=== PATIENT | female | born 1970 ===

== ENCOUNTER 2017-07-06 04:57 | Inpatient (IN) | payer MEDICARE, OTHER ==
[2017-07-06 05:07] VITALS: BMI 37.2
[2017-07-06] MEDS ORDERED: HYDROmorphone 0.5 mg/0.5 ml ISec IVP STA (05:28)
[2017-07-06] MEDS ORDERED: Sodium Chloride 0.9% 1,000 ML IV STA (05:29)
[2017-07-06] MEDS ORDERED: HYDROmorphone 0.5 mg/0.5 ml ISec ONE (05:33)
--- NOTE | 2017-07-06 05:33 | ED PDOC ---
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 Associated nausea/vomiting. Denies fever, chest pain, shortness of breath, palpitations, changes in bowel movements, urinary symptoms. Past Medical History Reviewed: Historical Data, Nursing Documentation, Vital Signs Vital Signs: Last Vital Signs Temp 98.6 F 07/06/17 05:07 Pulse 60 07/06/17 05:07 Resp 19 07/06/17 05:07 BP 142/71 07/06/17 05:07 Pulse Ox 98 07/06/17 05:39 - Medical History PMH: Anxiety, Asthma, Back Problems, Depression, Gastritis, Gastrointestinal Ulcer Denies: Chronic Kidney Disease - Surgical History Surgical History: Pacemaker (lower back for pain management) Other surgeries: right groin lymph node resection - Family History Family History: States: Unknown Family Hx - Home Medications Home Medications: Ambulatory Orders Medication Instructions Recorded DULoxetine [Cymbalta] 30 mg PO DAILY 05/09/15 Divalproex [Depakote ER] 750 mg PO BID 07/06/17 Omeprazole Magnesium [Prilosec Otc] 40 mg PO DAILY 07/06/17 Oxycodone HCl [Oxycontin] 10 mg PO Q6 PRN 07/06/17 - Allergies Allergies/Adverse Reactions: Allergies Allergy/AdvReac Type Severity Reaction Status Date / Time shrimp Allergy RASH Verified 07/06/17 05:06 seafood Allergy RASH Uncoded 07/06/17 05:06 Review of Systems ROS Statement: Except As Marked, All Systems Reviewed And Found Negative Gastrointestinal: Positive for: Nausea, Vomiting, Abdominal Pain Physical Exam - Reviewed Nursing Documentation Reviewed: Yes Vital Signs Reviewed: Yes - Physical Exam Appears: Positive for: Well, Non-toxic, Uncomfortable (moaning) Head Exam: Positive for: ATRAUMATIC, NORMAL INSPECTION, NORMOCEPHALIC Skin: Positive for: Normal Color Eye Exam: Positive for: Normal appearance ENT: Positive for: Normal ENT Inspection Cardiovascular/Chest: Positive for: Regular Rate, Rhythm Respiratory: Positive for: Normal Breath Sounds Gastrointestinal/Abdominal: Positive for: Bowel Sounds, Soft, Tenderness ( diffuse upper abdominal discomfort) Back: Positive for: Normal Inspection Extremity: Positive for: Normal ROM Neurologic/Psych: Positive for: Alert, Oriented - ECG ECG: Positive for: Viewed By Me (reviewed by ED attending) ECG Rhythm: Positive for: Sinus Bradycardia (57bpm,) O2 Sat by Pulse Oximetry: 98 - Progress ED Course And Treament: labs, urine, IV fluids, IV pepcid, IV zofran, IV dilaudid Patient looked up in [facility]; receives 120 tablets of Oxycodone 10mg monthly, last rx 07/04/17 Disposition - Clinical Impression Clinical Impression: Abdominal pain - Patient ED Disposition Is Patient to be Admitted: No - Disposition Disposition: Transfer of Care Disposition Time: 06:00 Condition: STABLE Patient Signed Over To: Shey Gomez Handoff Comments: pending labs, u/s, re-eval
--- NOTE | 2017-07-06 05:51 | ED PDOC ---
- Laboratory Results Result Diagrams: 07/06/17 05:40 07/07/17 05:30 - ECG O2 Sat by Pulse Oximetry: 98 Medical Decision Making Medical Decision Makin:00 Patient signed out to me by Lisa Suarez PA-C pending imaging and workup. 7:[address] Marcial pending imaging and workup. Scribe Attestation: Documented by Kim Hidalgo, acting as a scribe for Shey Gomez MD. Provider Scribe Attestation: All medical record entries made by the Scribe were at my direction and personally dictated by me. I have reviewed the chart and agree that the record accurately reflects my personal performance of the history, physical exam, medical decision making, and the department course for this patient. I have also personally directed, reviewed, and agree with the discharge instructions and disposition. Disposition - Clinical Impression Clinical Impression: Acute cholecystitis - POA Present On Arrival: None - Disposition Disposition: Transfer of Care Disposition Time: 07:00 Condition: STABLE Patient Signed Over To: Ekta Marcial
[2017-07-06 05:57] LABS: BASO # 0.1 K/uL (0.0-0.2); BASO % 1.1 % (0.0-2.0); EOS # 0.2 K/uL (0.0-0.7); EOS % 3.6 % (0.0-4.0); LYMPH # 1.8 K/uL (1.0-4.3); LYMPH % 30.3 % (20.0-40.0); MEAN CELL VOLUME 95.8 fl (81.0-99.0); MEAN CORPUSCULAR HEMOGLOBIN 31.5 pg (27.0-31.0); MEAN CORPUSCULAR HGB CONC 32.8 g/dL (33.0-37.0); MEAN PLATELET VOLUME 10.1 fl (7.2-11.7); MONO # 0.5 K/uL (0.0-0.8); MONO % 9.3 % (0.0-10.0); NEUT # 3.3 K/uL (1.8-7.0); NEUT % 55.7 % (50.0-75.0); NRBC % 0.1 % (0.0-0.0); RED CELL DISTRIBUTION WIDTH 12.9 % (11.5-14.5); WHITE BLOOD COUNT 5.9 K/uL (4.8-10.8)
[2017-07-06 06:54] LABS: RBC URINE 3 /hpf (0-3); URINE BILIRUBIN NEGATIVE (NEGATIVE); URINE BLOOD NEGATIVE (NEGATIVE); URINE COLOR YELLOW (YELLOW); URINE GLUCOSE (UA) NEG (Normal); URINE KETONE NEGATIVE (NEGATIVE); URINE LEUKOCYTE ESTERASE NEG Leu/uL (Negative); URINE PROTEIN 30 mg/dL (NEGATIVE); URINE UROBILINOGEN 0.2-1.0 mg/dL (0.2-1.0); WBC URINE 2 /hpf (0-5)
[2017-07-06 06:58] LABS: ALB/GLOB RATIO 1.1 (1.0-2.1); ALKALINE PHOSPHATASE 85 U/L (38-126); ALT/SGPT 20 U/L (9-52); AST/SGOT 24 U/L (14-36); BILIRUBIN,TOTAL 0.1 mg/dl (0.2-1.3); BLOOD UREA NITROGEN 20 mg/dl (7-17); CALCIUM 8.4 mg/dL (8.4-10.2); CARBON DIOXIDE 25 mmol/L (22-30); CHLORIDE 106 mmol/L (98-107); GFR AFRICAN-AMERICAN > 60; GLUCOSE,RANDOM 98 mg/dL (65-105); LIPASE 190 U/L (23-300); POTASSIUM 4.6 MMOL/L (3.6-5.0); SODIUM 143 mmol/l (132-148); TOTAL PROTEIN 7.5 G/DL (6.3-8.2)
--- NOTE | 2017-07-06 08:23 | ED PDOC ---
- Laboratory Results Result Diagrams: 07/06/17 05:40 07/06/17 05:40 - ECG ECG: Positive for: Viewed By Me O2 Sat by Pulse Oximetry: 98 (RA) Pulse Ox Interpretation: Normal - Progress Condition: Improved - Core Measure Core Measure Indicators: Chest Pain Medical Decision Making Medical Decision Making: Time: 07:00 --Patient is signed out to me by Dr. Shey Gomez MD, pending ultrasound and reevaluation Time: 08:23 US ABDOMEN: FINDINGS: Liver: Unremarkable. No mass. No intrahepatic bile duct dilation. Gallbladder: The gallbladder is thick walled measuring 6 mm. Multiple calcified gallstones are present. Positive Euceda's sign. There is a non-mobile gallbladder neck stone measuring 1.9 cm. Common bile duct: The common bile duct is dilated measuring 9 mm. No definite distal common bile duct stone. Pancreas: The pancreas is poorly-visualized due to overlying bowel gas. Right kidney: Non-shadowing 9 mm echogenicity in the upper pole of the RIGHT kidney. Nonobstructing RIGHT renal stone is not excluded. There is no evidence of hydronephrosis. IMPRESSION: Findings suggest acute cholecystitis. Dilated common bile duct. No definite distal common bile duct stone. Further evaluation with MRCP of the abdomen could be obtained. Time: 8:30 --Paged certified surgical tech/first assistant. Patient will be admitted to Med/Surg for acute cholecystitis, under the service of Dr. Curiel. --Given Toradol 30 mg IV Scribe Attestation: Documented by Fanny Abarca, acting as a scribe for Ekta Marcial MD Provider Scribe Attestation: All medical record entries made by the Scribe were at my direction and personally dictated by me. I have reviewed the chart and agree that the record accurately reflects my personal performance of the history, physical exam, medical decision making, and the department course for this patient. I have also personally directed, reviewed, and agree with the discharge instructions and disposition. Disposition Doctor Will See Patient In The: Hospital - Clinical Impression Clinical Impression: Acute cholecystitis - POA Present On Arrival: None - Disposition Disposition: Admitted as In-Patient Disposition Time: 09:30 Condition: STABLE
--- NOTE | 2017-07-06 08:24 | US ---
EXAM: US Abdomen Limited, Right Upper Quadrant CLINICAL HISTORY: 47 years old, female; Pain; Other: Upper abd pain; Additional info: Upper abdominal pain, vomiting TECHNIQUE: Real-time ultrasound of the right upper quadrant with image documentation. COMPARISON: No relevant prior studies available. FINDINGS: Liver: Unremarkable. No mass. No intrahepatic bile duct dilation. Gallbladder: The gallbladder is thick walled measuring 6 mm. Multiple calcified gallstones are present. Positive Euceda's sign. There is a non-mobile gallbladder neck stone measuring 1.9 cm. Common bile duct: The common bile duct is dilated measuring 9 mm. No definite distal common bile duct stone. Pancreas: The pancreas is poorly-visualized due to overlying bowel gas. Right kidney: Non-shadowing 9 mm echogenicity in the upper pole of the RIGHT kidney. Nonobstructing RIGHT renal stone is not excluded. There is no evidence of hydronephrosis. IMPRESSION: Findings suggest acute cholecystitis. Dilated common bile duct. No definite distal common bile duct stone. Further evaluation with MRCP of the abdomen could be obtained.
--- NOTE | 2017-07-06 09:31 | CP.PCM.HP ---
History of Present Illness - History of Present Illness History of Present Illness: CC: epigastric and RUQ pain with N&V Patient is a 47F with PMH of PUD diagnosed on EGD 2 weeks ago who presented with epigastric abdominal pain for 2 days. Patient states that pain is burning in nature in the epigastrium and RUQ, intermittent lasting a couple hours, worse at night and with meals. Patient states that she has also had several episodes of nausea and vomiting. Emesis was at first green and today the emesis was red per the patient. Patient admits to a history of similar pain on and off for several years. Patient denies any melena, hematochezia, diarrhea, fevers, or chills. Pain is currently controlled with IV pain medication. Present on Admission - Present on Admission Any Indicators Present on Admission: No Review of Systems - Constitutional Constitutional: absent: Anorexia, Chills, Fever - EENT Nose/Mouth/Throat: absent: Nasal Discharge, Sore Throat, Neck Pain - Cardiovascular Cardiovascular: absent: Chest Pain, Chest Pain at Rest, Chest Pain with Activity , Dyspnea - Respiratory Respiratory: Wheezing (chronic intermittent). absent: Dyspnea, Dyspnea on Exertion, Chest Congestion - Gastrointestinal Gastrointestinal: As Per HPI - Genitourinary Genitourinary: absent: Change in Urinary Stream, Dysuria, Hematuria - Reproductive: Female Reproductive:Female: Amenorrhea, Post Menopausal. absent: Abnormal Vaginal Bleeding - Menstruation Menstruation: Amenorrhea, Post Menopausal. absent: Abnormal Vaginal Bleeding - Musculoskeletal Musculoskeletal: Back Pain. absent: Numbness, Tingling - Integumentary Integumentary: absent: Change in Pigmentation, Changing Lesions, New Lesions - Neurological Neurological: absent: Numbness, Tingling, Weakness - Hematologic/Lymphatic Hematologic: absent: Easy Bleeding Past Patient History - Infectious Disease Hx of Infectious Diseases: None - Past Medical History & Family History Past Medical History?: Yes - Past Social History Smoking Status: Former Smoker (1/2 PPD for 10 years, quit 4 years ago) Alcohol: None Drugs: Cannabis (smokes) - CARDIAC Hx Cardiac Disorders: No - PULMONARY Hx Asthma: Yes - NEUROLOGICAL Hx Neurological Disorder: Yes Hx Seizures: Yes - HEENT Hx HEENT Problems: No - RENAL Hx Chronic Kidney Disease: No - ENDOCRINE/METABOLIC Hx Endocrine Disorders: No - HEMATOLOGICAL/ONCOLOGICAL Hx Blood Disorders: Yes Hx Cancer: Yes (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 groin s/p excision, pelvic radiation) Hx Chemotherapy: Yes - INTEGUMENTARY Hx Basil Cell: No - MUSCULOSKELETAL/RHEUMATOLOGICAL Hx Back Pain: Yes Hx Falls: No - GASTROINTESTINAL Hx Gastrointestinal Disorders: Yes Hx Gastritis: Yes Hx Ulcer: Yes - GENITOURINARY/GYNECOLOGICAL Hx Genitourinary Disorders: No - PSYCHIATRIC Hx Anxiety: Yes Hx Depression: Yes Hx Emotional Abuse: No Hx Physical Abuse: No - SURGICAL HISTORY Hx Surgeries: Yes Other/Comment: lymph node removal, skin graft right groin, insertion of lower back nerve stimulator - ANESTHESIA Hx Anesthesia: Yes Hx Anesthesia Reactions: No Hx Malignant Hyperthermia: No Meds Allergies/Adverse Reactions: Allergies Allergy/AdvReac Type Severity Reaction Status Date / Time shrimp Allergy RASH Verified 07/06/17 05:06 seafood Allergy RASH Uncoded 07/06/17 05:06 Physical Exam - Constitutional Appears: Non-toxic, No Acute Distress - Head Exam Head Exam: ATRAUMATIC, NORMOCEPHALIC - Eye Exam Eye Exam: Normal appearance. absent: Conjunctival injection, Scleral icterus - ENT Exam ENT Exam: Mucous Membranes Moist, Normal Oropharynx - Respiratory Exam Respiratory Exam: NORMAL BREATHING PATTERN. absent: Accessory Muscle Use, Respiratory Distress - Cardiovascular Exam Cardiovascular Exam: RRR - GI/Abdominal Exam GI & Abdominal Exam: Soft, Tenderness (Moderate tenderness in the RUQ and epigastrium). absent: Distended, Rebound Additional comments: hill's sign - Extremities Exam Extremities exam: Positive for: pedal pulses present. Negative for: calf tenderness, pedal edema - Back Exam Back exam: absent: CVA tenderness (L), CVA tenderness (R) - Neurological Exam Neurological exam: Alert, Oriented x3 - Psychiatric Exam Psychiatric exam: Normal Affect, Normal Mood - Skin Skin Exam: Dry, Intact, Normal Color, Warm Results - Vital Signs Recent Vital Signs: Last Vital Signs Temp 98.6 F 07/06/17 05:07 Pulse 74 07/06/17 08:52 Resp 19 07/06/17 05:07 BP 142/71 07/06/17 05:07 Pulse Ox 98 07/06/17 08:53 - Labs Result Diagrams: 07/06/17 05:40 07/06/17 05:40 Labs: Laboratory Results - last 24 hr 07/06/17 07/06/17 07/06/17 05:40 05:40 06:30 WBC 5.9 RBC 4.28 Hgb 13.5 Hct 41.0 MCV 95.8 D MCH 31.5 H MCHC 32.8 L RDW 12.9 Plt Count 201 MPV 10.1 Neut % (Auto) 55.7 Lymph % (Auto) 30.3 [place] % (Auto) 9.3 Eos % (Auto) 3.6 Baso % (Auto) 1.1 Neut # 3.3 Lymph # 1.8 [place] # 0.5 Eos # 0.2 Baso # 0.1 Sodium 143 Potassium 4.6 Chloride 106 Carbon Dioxide 25 Anion Gap 17 BUN 20 H Creatinine 0.8 Est GFR ( Amer) > 60 Est GFR (Non-Af Amer) > 60 Random Glucose 98 Calcium 8.4 Total Bilirubin 0.1 L AST 24 ALT 20 Alkaline Phosphatase 85 Total Protein 7.5 Albumin 4.0 Globulin 3.5 Albumin/Globulin Ratio 1.1 Lipase 190 Urine Color Yellow Urine Clarity Slighty-cloudy Urine pH 5.0 Ur Specific [place] 1.028 Urine Protein 30 Urine Glucose (UA) Neg Urine Ketones Negative Urine Blood Negative Urine Nitrate Negative Urine Bilirubin Negative Urine Urobilinogen 0.2-1.0 Ur Leukocyte Esterase Neg Urine RBC (Auto) 3 Urine Microscopic WBC 2 Ur Squamous Epith Cells 2 - Imaging and Cardiology US - abdomen Status: Image reviewed by me, Report reviewed by me Assessment & Plan - Assessment and Plan (Free Text) Assessment: 47F with PMH of PUD with biliary colic with impacted cholelithiasis Plan: -OR today for laparoscopic cholecystectomy -NPO -IV therapeutic protonix -IVF -trend CBC/CMP -PRN pain and nausea medication -Continue home medications -Incentive spirometer, OOB -SCD Discussed with Dr. Moisés Owens, PGY2
--- NOTE | 2017-07-06 10:24 | RAD ---
HISTORY: COMPARISON: 09/17/2016. TECHNIQUE: Chest PA and lateral FINDINGS: LINES AND TUBES: None. LUNG AND PLEURA: The lungs are well inflated and clear. No lobar pneumonia. HEART AND MEDIASTINUM: The heart is not enlarged. The hilar and mediastinal contours are within normal limits. SKELETAL STRUCTURES: The bony structures are within normal limits for the patient's age. VISUALIZED UPPER ABDOMEN: Normal. OTHER FINDINGS: None. IMPRESSION: No active pulmonary disease.
[2017-07-06] MEDS: Lactated Ringer's 1,000 ML IV SCH (12:02)
[2017-07-06 12:23] LABS: PARTIAL THROMBOPLASTIN TIME 29.5 Seconds (25.6-37.1)
[2017-07-06] MEDS: HYDROmorphone 0.5 mg/0.5 ml ISec IVP PRN (12:28)
[2017-07-06] MEDS ORDERED: Lidocaine 4% (Laryng-O-Jet) Kit MM ONE (15:30)
[2017-07-06] MEDS ORDERED: Propofol 10 mg/ml Inj (20 ML) ONE ×2 (15:30→16:31)
[2017-07-06] MEDS ORDERED: Phenylephrine 10 mg/ml Inj ONE (15:34)
[2017-07-06] MEDS ORDERED: Midazolam 2 MG/2 ML VIAL ONE (15:34)
[2017-07-06] MEDS ORDERED: Albuterol HFA 90 mcg/actuation (8 g) ONE (15:34)
[2017-07-06] MEDS ORDERED: Lactated Ringer's 1,000 ML IV ONE ×2 (15:35→17:42)
[2017-07-06] MEDS ORDERED: CEFAZOLIN IVPB ONE (15:39)
[2017-07-06] MEDS ORDERED: DEXTROSE IVPB ONE (15:39)
[2017-07-06] MEDS ORDERED: Rocuronium 10 mg/ml (5 ml) ONE (15:52)
[2017-07-06] MEDS ORDERED: Dexamethasone 4 mg/1 ml ONE (15:54)
[2017-07-06] MEDS ORDERED: Desflurane Inhalation Anesthetic Liq (240 ml) ONE (15:59)
[2017-07-06] MEDS ORDERED: Lactated Ringer's 500 ML IV ONE (16:10)
[2017-07-06] MEDS ORDERED: Neostigmine Methylsulfate 3mg/3ml Syringe IV ONE (16:26)
[2017-07-06] MEDS ORDERED: Albuterol 0.083% Inhal Sol (2.5 mg/3 mL) UD ONE (17:02)
[2017-07-06] MEDS ORDERED: HYDROmorphone 0.5 mg/0.5 ml ISec IVP PRN (17:03)
[2017-07-06] MEDS ORDERED: Albuterol 0.083% Inhal Sol (2.5 mg/3 mL) UD INH ONE (17:03)
--- NOTE | 2017-07-06 17:06 | PCM.SURG1 ---
Surgeon's Initial Post Op Note - Surgeon's Notes Surgeon: Dr. Curiel Consulting Sales Executive: Dr. Tinoco PGY2, Dr. Fountain PGY4 Type of Anesthesia: General Endo Pre-Operative Diagnosis: cholelithiasis Operative Findings: see operative report Post-Operative Diagnosis: see operative report Operation Performed: laparoscopic cholecystectomy Specimen/Specimens Removed: gallbladder Estimated Blood Loss: EBL {In ML}: 20 Blood Products Given: N/A Drains Used: No Drains Post-Op Condition: Good Date of Surgery/Procedure: 07/06/17 Time of Surgery/Procedure: 17:05
[2017-07-06] MEDS ORDERED: Lactated Ringer's 1,000 ML IV SCH (17:15)
[2017-07-06] MEDS: Divalproex 250 mg DR(BID formulation) PO SCH (19:00)
[2017-07-06] MEDS: Morphine 4 MG/ML VIAL IVP PRN (20:47)
[2017-07-06] MEDS: ceFAZolin 2 GM in Sodium Chloride 0.9% 100 ML IVPB SCH (20:57)
[2017-07-07] MEDS: HYDROmorphone 0.5 mg/0.5 ml ISec IVP PRN (00:36)
[2017-07-07] MEDS: Lactated Ringer's 1,000 ML IV SCH (03:29)
[2017-07-07] MEDS: Morphine 4 MG/ML VIAL IVP PRN (05:31)
[2017-07-07 07:42] LABS: ALB/GLOB RATIO 1.1 (1.0-2.1); ALKALINE PHOSPHATASE 85 U/L (38-126); ALT/SGPT 37 U/L (9-52); AST/SGOT 48 U/L (14-36); BILIRUBIN,TOTAL 0.2 mg/dl (0.2-1.3); BLOOD UREA NITROGEN 11 mg/dl (7-17); CALCIUM 8.8 mg/dL (8.4-10.2); CARBON DIOXIDE 26 mmol/L (22-30); CHLORIDE 106 mmol/L (98-107); GFR AFRICAN-AMERICAN > 60; GLUCOSE,RANDOM 93 mg/dL (65-105); POTASSIUM 4.4 MMOL/L (3.6-5.0); SODIUM 142 mmol/l (132-148)
[2017-07-07 08:17] VITALS: RESP 20
[2017-07-07 08:45] VITALS: BP 116/74; PULSE 59; TEMP 98.1
[2017-07-07] MEDS ORDERED: Oxycodone/Acetaminophen 5/325 mg Tab PO PRN (08:45)
[2017-07-07] MEDS: Divalproex 250 mg DR(BID formulation) PO SCH (08:59)
[2017-07-07] MEDS: ceFAZolin 2 GM in Sodium Chloride 0.9% 100 ML IVPB SCH (09:40)
--- NOTE | 2017-07-07 09:44 | CP.PCM.DIS ---
Provider - Provider Date of Admission: 07/06/17 08:37 Attending physician: Jaiden Curiel MD Time Spent in preparation of Discharge (in minutes): 45 Diagnosis - Discharge Diagnosis (1) Biliary colic Status: Acute Priority: High (2) DVT prophylaxis Status: Acute Priority: Low (3) Intractable vomiting with nausea Status: Resolved Priority: High (4) Chronic back pain Status: Chronic Priority: Low (5) Gastritis Status: Chronic Priority: Medium (6) Seizure Status: Chronic Priority: Low (7) Chronic pain due to neoplasm Status: Acute Priority: Low (8) Unspecified asthma, uncomplicated Status: Chronic Priority: Low Hospital Course - Lab Results Lab Results: Most Recent Lab Values WBC 5.9 K/uL (4.8-10.8) 07/06/17 05:40 RBC 4.28 Mil/uL (3.80-5.20) 07/06/17 05:40 Hgb 13.5 g/dL (12.0-16.0) 07/06/17 05:40 Hct 41.0 % (34.0-47.0) 07/06/17 05:40 MCV 95.8 fl (81.0-99.0) D 07/06/17 05:40 MCH 31.5 pg (27.0-31.0) H 07/06/17 05:40 MCHC 32.8 g/dL (33.0-37.0) L 07/06/17 05:40 RDW 12.9 % (11.5-14.5) 07/06/17 05:40 Plt Count 201 K/uL (130-400) 07/06/17 05:40 MPV 10.1 fl (7.2-11.7) 07/06/17 05:40 Neut % (Auto) 55.7 % (50.0-75.0) 07/06/17 05:40 Lymph % (Auto) 30.3 % (20.0-40.0) 07/06/17 05:40 Stark % (Auto) 9.3 % (0.0-10.0) 07/06/17 05:40 Eos % (Auto) 3.6 % (0.0-4.0) 07/06/17 05:40 Baso % (Auto) 1.1 % (0.0-2.0) 07/06/17 05:40 Neut # 3.3 K/uL (1.8-7.0) 07/06/17 05:40 Lymph # 1.8 K/uL (1.0-4.3) 07/06/17 05:40 Stark # 0.5 K/uL (0.0-0.8) 07/06/17 05:40 Eos # 0.2 K/uL (0.0-0.7) 07/06/17 05:40 Baso # 0.1 K/uL (0.0-0.2) 07/06/17 05:40 PT 10.7 Seconds (9.8-13.1) 07/06/17 12:00 INR 1.0 (0.9-1.2) 07/06/17 12:00 APTT 29.5 Seconds (25.6-37.1) 07/06/17 12:00 Sodium 142 mmol/l (132-148) 07/07/17 05:30 Potassium 4.4 MMOL/L (3.6-5.0) 07/07/17 05:30 Chloride 106 mmol/L (98-107) 07/07/17 05:30 Carbon Dioxide 26 mmol/L (22-30) 07/07/17 05:30 Anion Gap 14 (-20) 07/07/17 05:30 BUN 11 mg/dl (7-17) 07/07/17 05:30 Creatinine 0.7 mg/dL (0.7-1.2) 07/07/17 05:30 Est GFR ( Amer) > 60 07/07/17 05:30 Est GFR (Non-Af Amer) > 60 07/07/17 05:30 Random Glucose 93 mg/dL (65-105) 07/07/17 05:30 Calcium 8.8 mg/dL (8.4-10.2) 07/07/17 05:30 Total Bilirubin 0.2 mg/dl (0.2-1.3) 07/07/17 05:30 AST 48 U/L (14-36) H D 07/07/17 05:30 ALT 37 U/L (9-52) 07/07/17 05:30 Alkaline Phosphatase 85 U/L (38-126) 07/07/17 05:30 Total Protein 7.0 G/DL (6.3-8.2) 07/07/17 05:30 Albumin 3.7 g/dL (3.5-5.0) 07/07/17 05:30 Globulin 3.3 gm/dL (2.2-3.9) 07/07/17 05:30 Albumin/Globulin Ratio 1.1 (1.0-2.1) 07/07/17 05:30 Lipase 190 U/L (23-300) 07/06/17 05:40 Urine Color Yellow (YELLOW) 07/06/17 06:30 Urine Clarity Slighty-cloudy (Clear) 07/06/17 06:30 Urine pH 5.0 (5.0-8.0) 07/06/17 06:30 Ur Specific [place] 1.028 (1.003-1.030) 07/06/17 06:30 Urine Protein 30 mg/dL (NEGATIVE) 07/06/17 06:30 Urine Glucose (UA) Neg mg/dL (Normal) 07/06/17 06:30 Urine Ketones Negative mg/dL (NEGATIVE) 07/06/17 06:30 Urine Blood Negative (NEGATIVE) 07/06/17 06:30 Urine Nitrate Negative (NEGATIVE) 07/06/17 06:30 Urine Bilirubin Negative (NEGATIVE) 07/06/17 06:30 Urine Urobilinogen 0.2-1.0 mg/dL (0.2-1.0) 07/06/17 06:30 Ur Leukocyte Esterase Neg Eva/uL (Negative) 07/06/17 06:30 Urine RBC (Auto) 3 /hpf (0-3) 07/06/17 06:30 Urine Microscopic WBC 2 /hpf (0-5) 07/06/17 06:30 Ur Squamous Epith Cells 2 /hpf (0-5) 07/06/17 06:30 Blood Type A POSITIVE 07/06/17 11:20 Antibody Screen Negative 07/06/17 11:20 BBK History Checked Patient has bt 07/06/17 11:20 - Hospital Course Hospital Course: Patient a 47F with PMH of gastritis and chronic epigastric/RUQ abdominal pain with eating who presented to the ED with intractable nausea and vomiting and RUQ pain. Patient was found to have a stone impacted in her gall bladder neck with a dilated gallbladder and possitive sonographic hill's sign. Patient was taken to the OR later that day for a laparoscopic cholecystectomy. Patient tolerated the procedure well, and recovered well overnight. Patient ambulated, tolerated regular diet, and pain was controlled well by PO pain medication. Patient's vitals and labs were within normal limits. Plans to discharge patient to home with outpatient follow up with her primary and with Dr. Curiel were discussed with the patient, who understood and agreed For full hospital course, please refer to the chart. Discharge Exam - Head Exam Head Exam: ATRAUMATIC, NORMOCEPHALIC - Eye Exam Eye Exam: Normal appearance. absent: Conjunctival injection, Scleral icterus - ENT Exam ENT Exam: Mucous Membranes Moist, Normal Oropharynx - Respiratory Exam Respiratory Exam: NORMAL BREATHING PATTERN. absent: Accessory Muscle Use, Respiratory Distress - Cardiovascular Exam Cardiovascular Exam: RRR - GI/Abdominal Exam GI & Abdominal Exam: Soft, Tenderness (appropriate post-surgical moderate tenderness). absent: Distended Additional comments: Surgical dressings with moderate sero-sanguinous saturation in the umbilical incision, no active bleed or drainage. - Extremities Exam Additional comments: no calf tenderness or pedal edema. Pedal pulses present - Neurological Exam Neurological exam: Alert, Oriented x3 - Psychiatric Exam Psychiatric exam: Normal Affect, Normal Mood - Skin Skin Exam: Dry, Normal Color, Warm Discharge Plan - Follow Up Plan Condition: STABLE Disposition: HOME/ ROUTINE Instructions: Cholecystitis (DC), Laparoscopic Cholecystectomy (DC), Abdominal Pain (ED), Back Pain (GEN), Cholecystitis (GEN) Additional Instructions: Call to schedule follow up appointment with Dr. Curiel in 2 weeks. Call her office sooner or return to the ER if you have fever >100.4, severe nausea and vomiting, or drainage from the abdominal incision or any other concerning symptoms. Follow up with your primary doctor next week Remove bandaids from incision tomorrow (Sunday). Leave the white tape until they fall off. You may shower tomorrow but do not soak the incisions in a bath Resume normal activities of daily living, regular diet as tolerated, resume home medications including home pain medication as needed for pain, but do not lift >10 pounds until cleared to do so by Dr. Curiel Referrals: Jaiden Curiel MD [Staff Provider] -
--- NOTE | 2017-07-08 12:46 | OP ---
PROCEDURE DATE: 07/06/2017 SURGEON: Jaiden Curiel MD HOUSE FATHER: Dr. Tinoco and Dr. Fountain. ANESTHESIA: General. PREOPERATIVE DIAGNOSES: Cholelithiasis and cholecystitis. POSTOPERATIVE DIAGNOSES: Cholelithiasis and cholecystitis. PROCEDURE: Laparoscopic cholecystectomy. DESCRIPTION OF OPERATION: With the patient in the supine position under adequate general anesthesia, the abdomen was prepped and draped in the usual sterile manner. Veress needle puncture was performed at the umbilicus and insufflation to 15 cm water pressure of CO2, and a 10 mm laparoscopic trocar was placed via a supraumbilical incision. The pneumoperitoneum pressure was reduced to 12 cm due to anesthesia request for ventilation purposes, and under direct vision, additional trocars were placed in the epigastrium and right costal margin. The gallbladder was visualized. It was not acutely distended; however, the wall was thick and consistent with recent inflammation. The gallbladder fundus was grasped and elevated, and adhesions were taken down from the peritoneal surface to expose the infundibulum. The infundibulum was grasped and retracted laterally, and the cystic duct was identified and dissected. The cystic duct was cleared down towards the junction with the common bile duct and the cystic duct was then triply clipped and divided. Cystic artery was similarly identified and dissected. The cystic artery was triply clipped and divided, and the gallbladder was dissected free of the liver bed using electrocautery. The liver bed was edematous consistent with recent acute cholecystitis. The liver bed was inspected for hemostasis and the dissection was completed. The gallbladder was placed in a specimen retrieval bag and removed via the umbilical port site. It was noted to contain at least one moderately sized stone. The right upper quadrant was irrigated and suctioned. The pneumoperitoneum was released and the trocars removed. The umbilical port site was closed with a [id number] fascial suture of 0 Vicryl. All incisions were closed with 4-0 Monocryl subcuticular sutures and Steri-Strips. Dry sterile dressings were applied. The patient tolerated the procedure well and transferred to recovery room in stable condition. Estimated blood loss for the procedure was 20 mL. Jaiden Curiel MD
[2017-07-09 14:30] VITALS: O2SAT 98
== END 2017-07-07 14:09 | disposition home or self-care (01) | DRG 419 ==
LOC: H.ER 04:57 → H.ERHOLD 08:37 → H.MEDSURG1 10:24
PROVIDERS: ADMIT Specialist; ATTEND Specialist
PROC: 0FT44ZZ Resection of Gallbladder, Percutaneous Endoscopic Approach (ICD-10-PCS; principal; 2017-07-07)
DX: K80.00 Calculus of gallbladder with acute cholecystitis without obstruction (principal); R56.9 Unspecified convulsions; G89.3 Neoplasm related pain (acute) (chronic); J45.909 Unspecified asthma, uncomplicated; K29.70 Gastritis, unspecified, without bleeding; Z87.11 Personal history of peptic ulcer disease; Z87.891 Personal history of nicotine dependence; F32.9 Major depressive disorder, single episode, unspecified; F41.9 Anxiety disorder, unspecified; M54.9 Dorsalgia, unspecified; Z85.89 Personal history of malignant neoplasm of other organs and systems

== ENCOUNTER 2018-03-22 15:50 | Emergency (ER) | payer MEDICARE, OTHER ==
[2018-03-22 15:50] VITALS: BMI 37.2
[2018-03-22] MEDS ORDERED: Sodium Chloride 0.9% 1,000 ML IV STA (16:29)
[2018-03-22 17:06] LABS: BASO # 0.1 K/uL (0.0-0.2); BASO % 0.7 % (0.0-2.0); HEMOGLOBIN 14.9 g/dL (12.0-16.0); LYMPH # 0.7 K/uL (1.0-4.3); LYMPH % 7.6 % (20.0-40.0); MEAN CELL VOLUME 89.5 fl (81.0-99.0); MEAN CORPUSCULAR HEMOGLOBIN 30.5 pg (27.0-31.0); MEAN CORPUSCULAR HGB CONC 34.1 g/dL (33.0-37.0); MEAN PLATELET VOLUME 9.1 fl (7.2-11.7); MONO # 0.2 K/uL (0.0-0.8); MONO % 2.6 % (0.0-10.0); NEUT # 8.4 K/uL (1.8-7.0); NEUT % 89.1 % (50.0-75.0); PLATELET COUNT 212 K/uL (130-400); RBC 4.88 Mil/uL (3.80-5.20); RED CELL DISTRIBUTION WIDTH 12.9 % (11.5-14.5); WHITE BLOOD COUNT 9.4 K/uL (4.8-10.8)
[2018-03-22 17:18] LABS: ALB/GLOB RATIO 1.2 (1.0-2.1); ALBUMIN 4.7 g/dL (3.5-5.0); ALT/SGPT 31 U/L (9-52); AST/SGOT 36 U/L (14-36); BLOOD UREA NITROGEN 11 mg/dl (7-17); CALCIUM 9.6 mg/dL (8.4-10.2); GFR AFRICAN-AMERICAN > 60; GFR NON-AFRICAN AMERICAN > 60
[2018-03-22] MEDS ORDERED: Iohexol 300 100 ML IJ ONE (17:26)
--- NOTE | 2018-03-22 17:40 | CT ---
PROCEDURE: CT HEAD WITHOUT CONTRAST. HISTORY: trauma COMPARISON: CT head dated 10/01/2016. TECHNIQUE: Axial computed tomography images were obtained through the head/brain without intravenous contrast. Radiation dose: Total exam DLP = 776.2 mGy-cm. This CT exam was performed using one or more of the following dose reduction techniques: Automated exposure control, adjustment of the mA and/or kV according to patient size, and/or use of iterative reconstruction technique. FINDINGS: HEMORRHAGE: No intracranial hemorrhage. BRAIN: No mass effect or edema. No atrophy or chronic microvascular ischemic changes. VENTRICLES: Unremarkable. No hydrocephalus. CALVARIUM: Unremarkable. PARANASAL SINUSES: Under pneumatized frontal sinus. Otherwise unremarkable. MASTOID AIR CELLS: Unremarkable as visualized. No inflammatory changes. OTHER FINDINGS: Mild right supraorbital scalp swelling. IMPRESSION: No acute intracranial pathology.
--- NOTE | 2018-03-22 17:43 | CT ---
PROCEDURE: CT Cervical Spine without contrast HISTORY: trauma COMPARISON: None available. TECHNIQUE: Axial computed tomography images were obtained of the cervical spine without the use of intravenous contrast. Coronal and sagittal reformatted images were created and reviewed. Radiation dose: Total exam DLP = 510 mGy-cm. This CT exam was performed using one or more of the following dose reduction techniques: Automated exposure control, adjustment of the mA and/or kV according to patient size, and/or use of iterative reconstruction technique. FINDINGS: VERTEBRAE: No fracture. Normal alignment. No destructive bony lesion. DISCS/SPINAL CANAL/NEURAL FORAMINA: No significant central canal or neural foraminal stenosis. Mild narrowing at C5-6 with osteophytic ridging. Discs heights are otherwise grossly preserved. PARASPINAL SOFT TISSUES: Unremarkable. OTHER FINDINGS: None. IMPRESSION: No acute fracture. Mild degenerative changes.
--- NOTE | 2018-03-22 17:48 | ED PDOC ---
HPI: Headache Time Seen by Provider: 03/22/18 16:03 Chief Complaint (Nursing): GI Problem Chief Complaint (Provider): headache History Per: Patient History/Exam Limitations: no limitations Onset/Duration Of Symptoms: Days (x2) Current Symptoms Are (Timing): Better Additional Complaint(s): 47 year old female presents to the emergency department with a complaint of right-sided frontal headache associated with nausea and 1 episode of bright red vomiting ongoing since last night. Patient states she woke up on the couch ( where she normally sleeps) with additional right ankle pain, cut to left side of tongue and incident of urinating on self. Patient has a history of witnessed seizures in past and believes symptoms are consistent with another seizure episode. She reports that she is unable to stand due to ankle pain, thus, prompting ED visit. She further reports being compliant with her Aptiom, which had recently been increased from 600mg to 800mg by her oncologist. Oncologist: Eleanor Deshpande MD Past Medical History Reviewed: Historical Data, Nursing Documentation, Vital Signs Vital Signs: Last Vital Signs Temp 98.8 F 03/22/18 15:52 Pulse 73 03/22/18 15:52 Resp 18 03/22/18 15:52 BP 122/85 03/22/18 15:52 Pulse Ox 100 03/22/18 15:52 - Medical History PMH: Anxiety, Asthma, Back Problems, Depression, Gastritis, Gastrointestinal Ulcer, Seizures Denies: Chronic Kidney Disease - Surgical History Surgical History: Pacemaker (lower back for pain management) - Family History Family History: States: Unknown Family Hx - Social History Current smoker - smoking cessation education provided: No Ex-Smoker (has not smoked in the last 12 months): Yes Alcohol: None Drugs: Cannabis - Home Medications Home Medications: Ambulatory Orders Medication Instructions Recorded DULoxetine [Cymbalta] 30 mg PO DAILY 05/09/15 Aspirin [Adult Low Dose Aspirin EC] 81 mg PO MWF 07/06/17 Acetaminophen [Tylenol Extra 1,000 mg PO Q6 03/22/18 Strength] Albuterol Sulfate [Proair Hfa] 2 puff IH Q4 PRN 03/22/18 Eslicarbazepine Acetate [Aptiom] 800 mg PO DAILY 03/22/18 Multivitamin [Multi-Vitamin Daily] 1 tab PO DAILY 03/22/18 Omeprazole [Omeprazole] 40 mg PO DAILY 03/22/18 Oxycodone HCl [Oxycodone HCl] 15 mg PO Q6 03/22/18 Sucralfate [Carafate Tab] 1 gm PO BID 03/22/18 - Allergies Allergies/Adverse Reactions: Allergies Allergy/AdvReac Type Severity Reaction Status Date / Time shrimp Allergy RASH Verified 03/22/18 15:51 seafood Allergy RASH Uncoded 03/22/18 15:51 Review of Systems ROS Statement: Except As Marked, All Systems Reviewed And Found Negative Constitutional: Negative for: Fever, Chills ENT: Positive for: Other (left-sided cut on tongue) Cardiovascular: Negative for: Chest Pain Respiratory: Negative for: Shortness of Breath Gastrointestinal: Positive for: Nausea, Hematemesis (x1). Negative for: Abdominal Pain, Melena, Hematochezia Genitourinary Female: Negative for: Incontinence Musculoskeletal: Positive for: Foot Pain (right ankle). Negative for: Neck Pain , Back Pain Neurological: Positive for: Headache (right frontal) Physical Exam - Reviewed Nursing Documentation Reviewed: Yes Vital Signs Reviewed: Yes - Physical Exam Appears: Positive for: Uncomfortable, In Acute Distress (mildly painful) Head Exam: Negative for: NORMAL INSPECTION Skin: Positive for: Normal Color Eye Exam: Positive for: Normal appearance, EOMI, PERRL Cardiovascular/Chest: Positive for: Regular Rate, Rhythm, Chest Non Tender Respiratory: Positive for: Normal Breath Sounds. Negative for: Respiratory Distress Pulses-Dorsalis Pedis (L): 2+ Pulses-Dorsalis Pedis (R): 2+ Gastrointestinal/Abdominal: Positive for: Soft, Tenderness (RLQ), Other (small circular ecchymosis on RLQ) Extremity: Positive for: Normal ROM (upper/lower), Tenderness (right lateral malleolus). Negative for: Deformity (right lateral malleolus/right leg/hip/ pelvis), Other (right leg/hip/pelvic tenderness ) Neurologic/Psych: Positive for: Alert, warehouse selector II-XII (grossly intact), Oriented, Other (moderate swelling and ecchymosis to right forehead). Negative for: Motor /Sensory Deficits - Laboratory Results Result Diagrams: 03/22/18 16:20 03/22/18 16:20 - ECG O2 Sat by Pulse Oximetry: 100 (RA) Pulse Ox Interpretation: Normal Medical Decision Making Medical Decision Making: Initial Impression: Possible seizure Initial Plan: * Type and screen * CT cervical spine without contrast * CT chest/ABD/pelvis with IV contrast * CT head without contrast * EKG * CMP * Urine * CBC * PTT * PT/INR * Morphine 4mg IVP * NS 1,000ml IV per 1,000mls/hr * Zofran inj 4mg IVP * Xray ankle (right) Time: 1733 --CT head FINDINGS: HEMORRHAGE: No intracranial hemorrhage. BRAIN: No mass effect or edema. No atrophy or chronic microvascular ischemic changes. VENTRICLES: Unremarkable. No hydrocephalus. CALVARIUM: Unremarkable. PARANASAL SINUSES: Under pneumatized frontal sinus. Otherwise unremarkable. MASTOID AIR CELLS: Unremarkable as visualized. No inflammatory changes. OTHER FINDINGS: Mild right supraorbital scalp swelling. IMPRESSION: No acute intracranial pathology. --CT C-spine FINDINGS: VERTEBRAE: No fracture. Normal alignment. No destructive bony lesion. DISCS/SPINAL CANAL/NEURAL FORAMINA: No significant central canal or neural foraminal stenosis. Mild narrowing at C5- 6 with osteophytic ridging. Discs heights are otherwise grossly preserved. PARASPINAL SOFT TISSUES: Unremarkable. OTHER FINDINGS: None. IMPRESSION: No acute fracture. Mild degenerative changes. Time: 1758 --CXR FINDINGS: LUNGS: No active pulmonary disease. PLEURA: Mild eventration of the right hemidiaphragm No significant pleural effusion identified, no pneumothorax apparent. CARDIOVASCULAR: Normal. OSSEOUS STRUCTURES: Unchanged. VISUALIZED UPPER ABDOMEN: Normal. OTHER FINDINGS: None. IMPRESSION: No active disease. Time: 1800 --Xray ankle (right) FINDINGS: BONES: Minimally displaced fracture of the distal fibula. JOINTS: Widening of the medial clear space. Talar dome intact SOFT TISSUES: Bimalleolar soft tissue swelling. OTHER FINDINGS: Small Achilles enthesophyte. IMPRESSION: Minimally displaced fracture of the distal fibula with widening of the medial clear space. Time: 1811 --CT chest FINDINGS: CT CHEST WITH CONTRAST: LUNGS: Clear. No nodule, mass or consolidation. MEDIASTINUM: Unremarkable. Normal caliber aorta and pulmonary arterial trunk. No aortic dissection. Normal size heart. LYMPH NODES: Unremarkable. PLEURA: Unremarkable. No pneumothorax. No pleural fluid. BONES: Unremarkable. OTHER FINDINGS: None. CT ABDOMEN AND PELVIS: LIVER: Hepatic steatosis. No focal masses. No intrahepatic bile duct dilatation or perihepatic ascites. GALLBLADDER AND BILE DUCTS: Status post cholecystectomy. No abnormality is seen in the gallbladder fossa. PANCREAS: Unremarkable. No gross lesion or ductal dilatation. SPLEEN: Unremarkable. ADRENALS: Unremarkable. No mass. KIDNEYS AND URETERS: Unremarkable. No hydronephrosis. No solid mass. VASCULATURE: Unremarkable. No aortic aneurysm. BOWEL: Unremarkable. No obstruction. No gross mural thickening. APPENDIX: Normal appendix. PERITONEUM: Unremarkable. No free fluid. No free air. LYMPH NODES: Unremarkable. No enlarged lymph nodes. BLADDER: Unremarkable. REPRODUCTIVE: Unremarkable. BONES: No acute fracture. OTHER FINDINGS: Incidental finding(s): Neuro stimulator device identified. IMPRESSION: No acute findings related to/accounting for the clinical presentation. Additional benign and/or incidental findings described above. 1805 Pt. reports no pain relief. Dilaudid 1mg IV ordered. 184 Pt. reports good pain relief. Seen happily talking with mother Case d/w Dr. Ponce and agrees with plan and disposition pending podiatry eval. 1940 R ankle: minimally displaced distal fibula fx Reports pain has returned. Dilaudid 1mg IV ordered. Case d/w Dr. Jackson, podiatry, and will see patient in ED. Pt. searched on [place] [facility] which indicates pt. gets a monthly Rx of Oxycodone 10mg #120. Last Rx was filled on 03/07/2018. Scribe Attestation: Documented by Lashanda Tenorio, acting as a scribe for Ryan E. Pormentilla PA-C. Provider Scribe Attestation: All medical record entries made by the Scribe were at my direction and personally dictated by me. I have reviewed the chart and agree that the record accurately reflects my personal performance of the history, physical exam, medical decision making, and the department course for this patient. I have also personally directed, reviewed, and agree with the discharge instructions and disposition. Disposition - Clinical Impression Clinical Impression: Ankle fracture, Seizure - Patient ED Disposition Is Patient to be Admitted: Transfer of Care (Signed out to Rajiv KIMBALL pending podiatry eval) Counseled Patient/Family Regarding: Studies Performed, Diagnosis, Need For Followup, Rx Given - Disposition Disposition: Transfer of Care Disposition Time: 20:00 Condition: STABLE Forms: [employer] ([place]) Patient Signed Over To: Fidel Vance
[2018-03-22 18:00] LABS: LYMPHOCYTE 7 % (20-50); MONOCYTE 1 % (0-10); NEUTROPHIL 92 % (42-75); PLATELET ESTIMATE NORMAL (NORMAL); TOTAL CELLS COUNTED 100
[2018-03-22 18:01] LABS: ANISOCYTOSIS SLIGHT
--- NOTE | 2018-03-22 18:03 | RAD ---
PROCEDURE: Right Ankle Radiographs. HISTORY: trauma COMPARISON: None FINDINGS: BONES: Minimally displaced fracture of the distal fibula. JOINTS: Widening of the medial clear space. Talar dome intact SOFT TISSUES: Bimalleolar soft tissue swelling. OTHER FINDINGS: Small Achilles enthesophyte. IMPRESSION: Minimally displaced fracture of the distal fibula with widening of the medial clear space.
--- NOTE | 2018-03-22 18:04 | RAD ---
HISTORY: trauma COMPARISON: Chest radiograph dated 07/06/2017. FINDINGS: LUNGS: No active pulmonary disease. PLEURA: Mild eventration of the right hemidiaphragm No significant pleural effusion identified, no pneumothorax apparent. CARDIOVASCULAR: Normal. OSSEOUS STRUCTURES: Unchanged. VISUALIZED UPPER ABDOMEN: Normal. OTHER FINDINGS: None. IMPRESSION: No active disease.
[2018-03-22] MEDS ORDERED: HYDROmorphone 0.5 mg/0.5 ml ISec IVP STA ×3 (18:05→21:57)
--- NOTE | 2018-03-22 18:13 | CT ---
PROCEDURE: CT Chest, Abdomen and Pelvis with intravenous contrast HISTORY: Abdominal pain, s/p possible seizure COMPARISON: 05/09/2015 ct abdomen and pelvis TECHNIQUE: IV dose administered: 95 cc Omnipaque 300 Radiation dose: Total exam DLP = 1396.60 mGy-cm. This CT exam was performed using one or more of the following dose reduction techniques: Automated exposure control, adjustment of the mA and/or kV according to patient size, and/or use of iterative reconstruction technique. FINDINGS: CT CHEST WITH CONTRAST: LUNGS: Clear. No nodule, mass or consolidation. MEDIASTINUM: Unremarkable. Normal caliber aorta and pulmonary arterial trunk. No aortic dissection. Normal size heart. LYMPH NODES: Unremarkable. PLEURA: Unremarkable. No pneumothorax. No pleural fluid. BONES: Unremarkable. OTHER FINDINGS: None. CT ABDOMEN AND PELVIS: LIVER: Hepatic steatosis. No focal masses. No intrahepatic bile duct dilatation or perihepatic ascites. GALLBLADDER AND BILE DUCTS: Status post cholecystectomy. No abnormality is seen in the gallbladder fossa. PANCREAS: Unremarkable. No gross lesion or ductal dilatation. SPLEEN: Unremarkable. ADRENALS: Unremarkable. No mass. KIDNEYS AND URETERS: Unremarkable. No hydronephrosis. No solid mass. VASCULATURE: Unremarkable. No aortic aneurysm. BOWEL: Unremarkable. No obstruction. No gross mural thickening. APPENDIX: Normal appendix. PERITONEUM: Unremarkable. No free fluid. No free air. LYMPH NODES: Unremarkable. No enlarged lymph nodes. BLADDER: Unremarkable. REPRODUCTIVE: Unremarkable. BONES: No acute fracture. OTHER FINDINGS: Incidental finding(s): Neuro stimulator device identified. IMPRESSION: No acute findings related to/accounting for the clinical presentation. Additional benign and/or incidental findings described above.
[2018-03-22] MEDS ORDERED: HYDROmorphone 0.5 mg/0.5 ml ISec ONE ×2 (18:25→19:51)
--- NOTE | 2018-03-22 21:27 | ED PDOC ---
- Laboratory Results Result Diagrams: 03/22/18 16:20 03/22/18 16:20 - ECG O2 Sat by Pulse Oximetry: 100 (RA) - Progress ED Course And Treament: Seen by podiatry Placed in posterior splint Given crutch training prior to d/c Disposition - Clinical Impression Clinical Impression: Ankle fracture, Seizure - POA Present On Arrival: None - Disposition Referrals: Podiatry Clinic [Outside] Disposition: Routine/Home Disposition Time: 21:28 Condition: FAIR Prescriptions: Naproxen 375 mg PO Q8 PRN #21 tablet PRN Reason: Pain, Moderate (4-7) Instructions: Ankle Fracture, Seizures, Adult (DC) Forms: [facility] ED School/Work Excuse
--- NOTE | 2018-03-22 23:02 | CP.PCM.CON ---
History of Present Illness - History of Present Illness History of Present Illness: ED consult note for attending Shanae Cuevas 47 y/o F patient seen and evaluated at the bedside in the ED for pain in lateral side of her R ankle. Patient states that last night she had seizure attack near midnight and she felt down of the sofa. When she woke up she had sever pain and swelling in the outside of her R ankle. patient states that the pain was 10/10 on VAS scale. Patient states that the pain was excruciating so she called the ambulance who brought her by 1 pm today to the ED of the hospital. Patient denies any other pedal complaint. 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 Patient states that she is having the seizure since she stopped the gabapentin 2 years ago. patient denies any F/N/V/ C or SOB recently. PMH: Leiomyosarcoma, Chronic back and leg pain, Seizures. PSH: excision of tumer from her Right leg twice and reconstructive R leg surgery. Allergies: Shrimp and seafood. 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, pelvic radiation) Hx Chemotherapy: Yes - INTEGUMENTARY Hx Basil Cell: No - MUSCULOSKELETAL/RHEUMATOLOGICAL Hx Back Pain: Yes Hx Falls: No - GASTROINTESTINAL Hx Gastritis: Yes - GENITOURINARY/GYNECOLOGICAL Hx Genitourinary Disorders: No - PSYCHIATRIC Hx Anxiety: Yes Hx Depression: Yes - SURGICAL HISTORY Hx Surgeries: Yes Other/Comment: lymph node removal, skin graft right groin, insertion of lower back nerve stimulator - ANESTHESIA Hx Anesthesia: Yes Hx Anesthesia Reactions: No Hx Malignant Hyperthermia: No Meds Home Medications: Home Medication List Medication Instructions Recorded Confirmed Type Naproxen 375 mg PO Q8 PRN #21 tablet 03/22/18 Rx Allergies/Adverse Reactions: Allergies Allergy/AdvReac Type Severity Reaction Status Date / Time shrimp Allergy RASH Verified 03/22/18 15:51 seafood Allergy RASH Uncoded 03/22/18 15:51 Physical Exam - Constitutional Appears: Non-toxic - Head Exam Head Exam: NORMOCEPHALIC - Extremities Exam Additional comments: Lower extremity focused exam: Vasc: DP/PT 2/4 b/l. Cap. refill < 3 sec in all digits. Temp gradient warm to cool. moderate Non pitting edema noted over the Right lateral malleolous. Neuro: Protective and gross sensation are intact. Derm: No open lesions, No clinical signs of active bacterial infection. Ecchymosis noted over the right lateral malleolous. MSK: Pain on palpation of the right lateral malleolous. Pain with inversion and eversion of the R foot. muscle power couldn't be performed as the patient was guarding due to pain. - Neurological Exam Neurological exam: Alert, Oriented x3 Results - Vital Signs Recent Vital Signs: Last Vital Signs Temp 98.8 F 03/22/18 15:52 Pulse 73 03/22/18 15:52 Resp 18 03/22/18 15:52 BP 122/85 03/22/18 15:52 Pulse Ox 100 03/22/18 21:31 - Labs Result Diagrams: 03/22/18 16:20 03/22/18 16:20 Labs: Laboratory Results - last 24 hr 03/22/18 03/22/18 03/22/18 16:20 16:20 16:20 WBC 9.4 D RBC 4.88 Hgb 14.9 Hct 43.6 MCV 89.5 D MCH 30.5 MCHC 34.1 RDW 12.9 Plt Count 212 MPV 9.1 Neut % (Auto) 89.1 H Lymph % (Auto) 7.6 L [place] % (Auto) 2.6 Eos % (Auto) 0.0 Baso % (Auto) 0.7 Neut # (Auto) 8.4 H Lymph # (Auto) 0.7 L [place] # (Auto) 0.2 Eos # (Auto) 0.0 Baso # (Auto) 0.1 Neutrophils % (Manual) 92 H Lymphocytes % (Manual) 7 L Monocytes % (Manual) 1 Platelet Estimate Normal Anisocytosis (manual) Slight Sodium 142 Potassium 4.2 Chloride 108 H Carbon Dioxide 22 Anion Gap 16 BUN 11 Creatinine 0.7 Est GFR ( Amer) > 60 Est GFR (Non-Af Amer) > 60 Random Glucose 104 Calcium 9.6 Total Bilirubin 0.4 AST 36 D ALT 31 Alkaline Phosphatase 177 H D Total Protein 8.5 H Albumin 4.7 Globulin 3.8 Albumin/Globulin Ratio 1.2 Blood Type A POSITIVE Antibody Screen Negative BBK History Checked Patient has bt Assessment & Plan - Assessment and Plan (Free Text) Assessment: 47 Y/O F patient seen and evaluated at the ED for fracture right lateral malleolous and diastases of the inferior tibio-fibular ligament. Plan: Patient seen and evaluated at the bedside of the ED. Plan discussed in details with the attending Shanae Cuevas. Right ankle X-rays reviewed and showed minimally displaced right lateral ankle fracture with diastases of the inferior tibio-fibular ligament. Patient labs and vitals reviewed: Afebrile, No leukocytosis. An AO splint applied to the right ankle. Patient instructed to avoid bearing weight on her Right foot and to use crutches for ambulation. Dispensed one pair of crutches. Patient expressed verbal understanding. Patient to F/U in the podiatry clinic.
[2018-03-23 05:39] VITALS: BP 152/93; PULSE 88; RESP 14; TEMP 98.5; O2SAT 97
--- NOTE | 2018-03-25 10:25 | CARD ---
APPROVED REPORT EKG Measurement Heart [id number] VT [id number] [id number] <Conclusion> Normal sinus rhythm with sinus arrhythmia Normal ECG
== END 2018-03-22 22:45 | disposition home or self-care (01) ==
LOC: H.ER 15:50
DX: R56.9 Unspecified convulsions (principal); S82.61XA Displaced fracture of lateral malleolus of right fibula, initial encounter for closed fracture; W19.XXXA Unspecified fall, initial encounter; Z86.59 Personal history of other mental and behavioral disorders; J45.909 Unspecified asthma, uncomplicated; Z87.891 Personal history of nicotine dependence; Z95.0 Presence of cardiac pacemaker
CPT/HCPCS: 29515; 70450; 71045; 71260; 72125; 73610; 74177; 80053; 81025; 85025; 86850; 86900; 93005; 96374; 96375; 96376; 99285; J1170; J2270; J2405; J7030; Q9967

== ENCOUNTER 2018-04-10 13:32 | Emergency (ER) | payer MEDICARE, OTHER ==
[2018-04-10 13:33] VITALS: BMI 37.2
[2018-04-10 13:38] VITALS: TEMP 98.1
[2018-04-10] MEDS ORDERED: Morphine 4 MG/ML VIAL ONE (14:23)
--- NOTE | 2018-04-10 14:33 | ED PDOC ---
Lower Extremity Pain/Injury Time Seen by Provider: 04/10/18 13:51 Chief Complaint (Nursing): Lower Extremity Problem/Injury Chief Complaint (Provider): Lower Extremity Problem/Injury History Per: Patient History/Exam Limitations: no limitations Onset/Duration Of Symptoms: Days (20) Additional Complaint(s): 47 years old female with history of seizure and chronic pain presents to the ED for evaluation of right ankle pain since she fell on March 22. Patient reports having ankle fracture and splint and followed up with podiatry. She states she had surgery today for her ankle but was canceled last minute due to a problem with her lungs. Patient reports pain is sever and was not relieved with oxycontin. She reports she takes chronic pain medication by pain management provider. Patient also reports experiencing non productive cough. She denies any injury, shortness of breath or chest pain. PMD: non provided Past Medical History Reviewed: Historical Data, Nursing Documentation, Vital Signs Vital Signs: Last Vital Signs Temp 98.1 F 04/10/18 13:34 Pulse 59 L 04/10/18 13:34 Resp 18 04/10/18 13:34 BP 116/83 04/10/18 13:34 Pulse Ox 99 04/10/18 13:34 - Medical History PMH: Anxiety, Asthma, Back Problems, Depression, Gastritis, Gastrointestinal Ulcer, Seizures Denies: Chronic Kidney Disease - Surgical History Surgical History: Pacemaker (lower back for pain management) - Family History Family History: States: Unknown Family Hx - Social History Current smoker - smoking cessation education provided: No Alcohol: None Drugs: Cannabis - Home Medications Home Medications: Ambulatory Orders Medication Instructions Recorded DULoxetine [Cymbalta] 30 mg PO DAILY 05/09/15 Aspirin [Adult Low Dose Aspirin EC] 81 mg PO MWF 07/06/17 Acetaminophen [Tylenol Extra 1,000 mg PO Q6 03/22/18 Strength] Albuterol Sulfate [Proair Hfa] 2 puff IH Q4 PRN 03/22/18 Eslicarbazepine Acetate [Aptiom] 800 mg PO DAILY 03/22/18 Multivitamin [Multi-Vitamin Daily] 1 tab PO DAILY 03/22/18 Naproxen 375 mg PO Q8 PRN #21 tablet 03/22/18 Omeprazole [Omeprazole] 40 mg PO DAILY 03/22/18 Oxycodone HCl [Oxycodone HCl] 15 mg PO Q6 03/22/18 Sucralfate [Carafate Tab] 1 gm PO BID 03/22/18 - Allergies Allergies/Adverse Reactions: Allergies Allergy/AdvReac Type Severity Reaction Status Date / Time iodine Allergy RASH Verified 04/10/18 13:34 shrimp Allergy RASH Verified 03/22/18 15:51 seafood Allergy RASH Uncoded 03/22/18 15:51 Review of Systems ROS Statement: Except As Marked, All Systems Reviewed And Found Negative Cardiovascular: Negative for: Chest Pain Respiratory: Positive for: Cough. Negative for: Shortness of Breath Musculoskeletal: Positive for: Foot Pain (Right ankle with severe swelling) Physical Exam - Reviewed Nursing Documentation Reviewed: Yes Vital Signs Reviewed: Yes - Physical Exam Appears: Positive for: In Acute Distress (mild ) Head Exam: Positive for: ATRAUMATIC, NORMOCEPHALIC Skin: Positive for: Warm, Dry Extremity: Positive for: Capillary Refill (Toes exposed with less than 2 seconds ), Swelling (Severe to the right ankle), Other (Posterior splint) Neurologic/Psych: Positive for: Alert, Oriented. Negative for: Motor/Sensory Deficits - ECG O2 Sat by Pulse Oximetry: 99 (RA) Pulse Ox Interpretation: Normal Medical Decision Making Medical Decision Making: Time: 1359 Initial Impresion: ankle pain secondary to previous fracture. Initial Plan: --Tylenol 325 mg PO --Motrin 600 mg PO --Morphine 4 mg IM --Right Ankle 3 Views Rad --Refer to podiatry resident [id number] Patient refused Tylenol and Motrin. Discussed with pain management provider Sandhya WALKER who will be providing pain prescription for patient and will contact her for change in dosage. Accession No. : [id number] Patient Name / ID : LYNDON ANGEL / [id number] Exam Date : 04/10/2018 14:14:29 ( Approved ) Study Comment : Sex / Age : F / 47Y Creator : Veronica Bearden Dictator : Veronica Bearden Associate [employer] : [employer] Crew Worker : Veronica Bearden Approver2 : Report Date : 04/10/2018 14:34:29 My Comment : Date of service: 04/10/2018 PROCEDURE: Right Ankle Radiographs. HISTORY: RIGHT ankle pain COMPARISON: 03/22/2018 FINDINGS: BONES: Examination is now made through casting material. The oblique fracture-distal fibular metaphysis extension to the ankle mortise is renoted. The slight cortical offset/trace displacement is as before. There is less radiolucent fracture delineation on this exam- possibly partial intra osseous healing - partially obscuration by overlying casting material considerations. The very a slightly asymmetrically widened medial talar tibial ankle mortise space is renoted. The surrounding ankle medial lateral soft tissue swelling has decreased. No talar dome pathology appreciated Apparent posterior malleolar cortical hyperostoses - unchanged in appearance with the prior study no definitive fracture line here seen. This is sometimes a difficult area to assess with certainty for any subtle nondisplaced fractures. If clinically indicated, an MRI should be definitive here. JOINTS: No significant appearing osteoarthritis. Ankle mortise is slightly widened - medial aspect as above. . Talar dome intact SOFT TISSUES: Decreased ankle soft tissue swelling OTHER FINDINGS: None. IMPRESSION: Interval casting of distal fibular metaphyseal fracture trace cortical offset - interval changes in appearance -as referenced above. No worsening pathology appreciated. Lesser soft tissue swelling suggested RIGHT posterior splint removed: diffuse edema of lower leg, foot and ankle. 2+ DP pulse US ordered. Accession No. 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 HISTORY: RIGHT leg swelling pain h/o fracture COMPARISON: None available. TECHNIQUE: Common femoral, superficial femoral, popliteal and posterior tibial veins were evaluated. Flow was assessed with color Doppler, compressibility, assessment of phasic flow and augmentation response. FINDINGS: COMMON FEMORAL VEIN: Unremarkable. SUPERFICIAL FEMORAL VEIN: Unremarkable. POPLITEAL VEIN: Unremarkable. POSTERIOR TIBIAL VEIN: Unremarkable. OTHER FINDINGS: None. IMPRESSION: No evidence of deep venous thrombosis in the right lower extremity. New posterior placed by Podiatry resident, neurovascular intact after procedure. ----- Scribe Attestation: Documented by Taylor Jarquin, acting as a scribe for Ene Whalen MD. Provider Scribe Attestation: All medical record entries made by the Scribe were at my direction and personally dictated by me. I have reviewed the chart and agree that the record accurately reflects my personal performance of the history, physical exam, medical decision making, and the department course for this patient. I have also personally directed, reviewed, and agree with the discharge instructions and disposition. Disposition - Clinical Impression Clinical Impression: Ankle fracture, Ankle pain Counseled Patient/Family Regarding: Studies Performed, Diagnosis, Need For Followup - Disposition Referrals: Armin Childs DPM [Staff Provider] - (FOLLOW UP WITH DR CHILDS OR YOUR SCIENTIFIC DIVER SOON POSSIBLE.) Disposition: Routine/Home Disposition Time: 17:54 Condition: STABLE Additional Instructions: SANDHYA CHAVEZ WILL PRESCRIBED ANY ADDITIONAL PAIN MEDICATION YOU NEED. PLEASE CONTACT HIM FOR ANY PAIN ISSUES. FOLLOW UP WITH SCIENTIFIC DIVER FOR FURTHER MANAGEMENT OF YOUR ANKLE FRACTURE. Instructions: Ankle Fracture (DC), Chronic Pain, Opioids for Short-Term Treatment of Pain Forms: [employer] (Estonian)
--- NOTE | 2018-04-10 14:36 | RAD ---
Date of service: 04/10/2018 PROCEDURE: Right Ankle Radiographs. HISTORY: RIGHT ankle pain COMPARISON: 03/22/2018 FINDINGS: BONES: Examination is now made through casting material. The oblique fracture-distal fibular metaphysis extension to the ankle mortise is renoted. The slight cortical offset/trace displacement is as before. There is less radiolucent fracture delineation on this exam- possibly partial intra osseous healing -partially obscuration by overlying casting material considerations. The very a slightly asymmetrically widened medial talar tibial ankle mortise space is renoted. The surrounding ankle medial lateral soft tissue swelling has decreased. No talar dome pathology appreciated Apparent posterior malleolar cortical hyperostoses - unchanged in appearance with the prior study no definitive fracture line here seen. This is sometimes a difficult area to assess with certainty for any subtle nondisplaced fractures. If clinically indicated, an MRI should be definitive here. JOINTS: No significant appearing osteoarthritis. Ankle mortise is slightly widened -medial aspect as above. . Talar dome intact SOFT TISSUES: Decreased ankle soft tissue swelling OTHER FINDINGS: None. IMPRESSION: Interval casting of distal fibular metaphyseal fracture trace cortical offset - interval changes in appearance -as referenced above. No worsening pathology appreciated. Lesser soft tissue swelling suggested
[2018-04-10] MEDS ORDERED: Morphine 4 MG/ML VIAL IM STA (14:44)
--- NOTE | 2018-04-10 16:40 | CP.PCM.CON ---
History of Present Illness - History of Present Illness History of Present Illness: Podiatry consult notes for attending Dr. Velez 47 y/o F patient seen and evaluated at the bedside in the ED for fracture and pain in lateral side of her right ankle. Patient states that 3 weeks ago (2017) she had seizure attack and she felt down of the sofa and broke her left ankle. Patient states that she came afterwards to [place] ED where X-ray done and posterior splint applied to her left leg and instructed to stay NWB and to use crutches for ambulation. Patient states that she went home, Stayed NWB using crutches and followed up with a role player at [facility] (Dr. Contreras). patient states that at [place] 1 week ago her splint was taken off and a new one. Patient states that the new splint was painful. She states that she suppose to for surgery today but the anesthesia doctor Postpone her due to chest problem. He states that she was put in a posterior splint again which was not comfortable for her right LE. She states that she has pain in her right ankle about 8/10 on VAS scale and she doesn't feel that her ankle is stable. After removal of the splint and receiving morphine at the ED patient reported that the pain decrease to be 4-5/10 on VAS scale. Patient denies any other pedal complaint. 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 Patient states that she is having the seizure since she stopped the gabapentin 2 years ago. patient denies any F/N/V/C or SOB recently. Patient states that because of the pain devise in her back she couldn't do the CT scan. PMH: Leiomyosarcoma, Chronic back and leg pain, Seizures. PSH: excision of tumer from her Right leg twice and reconstructive R leg surgery. Allergies: Shrimp and seafood. 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, pelvic radiation) Hx Chemotherapy: Yes - INTEGUMENTARY Hx Basil Cell: No - MUSCULOSKELETAL/RHEUMATOLOGICAL Hx Back Pain: Yes Hx Falls: No - GASTROINTESTINAL Hx Gastritis: Yes - GENITOURINARY/GYNECOLOGICAL Hx Genitourinary Disorders: No - PSYCHIATRIC Hx Anxiety: Yes Hx Depression: Yes - SURGICAL HISTORY Hx Surgeries: Yes Other/Comment: lymph node removal, skin graft right groin, insertion of lower back nerve stimulator - ANESTHESIA Hx Anesthesia: Yes Hx Anesthesia Reactions: No Hx Malignant Hyperthermia: No Meds Allergies/Adverse Reactions: Allergies Allergy/AdvReac Type Severity Reaction Status Date / Time iodine Allergy RASH Verified 04/10/18 13:34 shrimp Allergy RASH Verified 03/22/18 15:51 seafood Allergy RASH Uncoded 03/22/18 15:51 Physical Exam - Constitutional Appears: Well, Non-toxic, No Acute Distress - Head Exam Head Exam: ATRAUMATIC, NORMOCEPHALIC - Extremities Exam Additional comments: Right Lower extremity focused exam: Vasc: DP 2/4, PT 1/4. Cap. refill < 3 sec in all digits. Temp gradient warm to cool. Right moderate Non pitting edema noted around the lateral malleolous. Neuro: Protective and gross sensation are intact. Ecchymosis noted at the right perimalleolar area lateral > medial Derm: No open lesions, No clinical signs of active bacterial infection. Ecchymosis noted at the right perimalleolar area lateral > medial. MSK: Pain on palpation of the right perimalleolar area. Pain with inversion and eversion of the R foot. Muscle power couldn't be performed as the patient was guarding due to pain. No pain elicited with right hallux dorsiflexion. - Neurological Exam Neurological exam: Alert, Oriented x3 - Psychiatric Exam Psychiatric exam: Normal Affect, Normal Mood Results - Vital Signs Recent Vital Signs: Last Vital Signs Temp 98.1 F 04/10/18 13:34 Pulse 59 L 04/10/18 13:34 Resp 18 04/10/18 13:34 BP 116/83 04/10/18 13:34 Pulse Ox 99 04/10/18 14:54 Assessment & Plan - Assessment and Plan (Free Text) Assessment: 47 Y/O F patient seen and evaluated at the ED for pain and fracture right lateral malleolous. Plan: Patient seen and evaluated at the bedside of the ED. Plan discussed in details with the attending Rosie Cuevas. Right ankle X-rays reviewed and showed partially healed right lateral ankle fracture with widening of the medial talar tibial mortise space. Patient vitals reviewed: Afebrile. Right LE duplex done; No evidence of DVT Posterior splint applied to her right LE. Patient instructed to continue NWB status. Patient instructed to use her crutches when ambulating. Patient instructed to use her pain medication for her right ankle pain under supervision of her pain doctor. Patient expressed verbal understanding. Patient to F/U in Rosie Cuevas office or her role player (Ben Cuevas) office according to her choice. - Date & Time Date: 04/10/18 Time: 16:50
--- NOTE | 2018-04-10 17:50 | US ---
Date of service: 04/10/2018 PROCEDURE: Right lower extremity venous duplex Doppler. HISTORY: RIGHT leg swelling pain h/o fracture COMPARISON: None available. TECHNIQUE: Common femoral, superficial femoral, popliteal and posterior tibial veins were evaluated. Flow was assessed with color Doppler, compressibility, assessment of phasic flow and augmentation response. FINDINGS: COMMON FEMORAL VEIN: Unremarkable. SUPERFICIAL FEMORAL VEIN: Unremarkable. POPLITEAL VEIN: Unremarkable. POSTERIOR TIBIAL VEIN: Unremarkable. OTHER FINDINGS: None. IMPRESSION: No evidence of deep venous thrombosis in the right lower extremity.
[2018-04-10] MEDS ORDERED: Oxycodone/Acetaminophen 5/325 mg Tab PO STA (18:01)
[2018-04-10] MEDS ORDERED: Oxycodone/Acetaminophen 5/325 mg Tab ONE (18:04)
[2018-04-10 19:16] VITALS: BP 145/88; PULSE 89; RESP 20
[2018-04-11 15:19] VITALS: O2SAT 99
== END 2018-04-10 19:16 | disposition left against medical advice (07) ==
LOC: H.ER 13:32
DX: S82.891G Other fracture of right lower leg, subsequent encounter for closed fracture with delayed healing (principal); W08.XXXD Fall from other furniture, subsequent encounter; J45.909 Unspecified asthma, uncomplicated; R56.9 Unspecified convulsions; Z79.82 Long term (current) use of aspirin; Z95.0 Presence of cardiac pacemaker; Z98.890 Other specified postprocedural states; Z86.59 Personal history of other mental and behavioral disorders
CPT/HCPCS: 29515; 73610; 93971; 96372; 99284; J2270

== ENCOUNTER 2018-07-21 10:25 | Emergency (ER) | payer MEDICARE, OTHER ==
[2018-07-21 10:31] VITALS: BMI 37.2
[2018-07-21] MEDS ORDERED: Sodium Chloride 0.9% 1,000 ML IV STA ×2 (11:06→14:20)
--- NOTE | 2018-07-21 11:24 | ED PDOC ---
HPI: Headache Time Seen by Provider: 07/21/18 10:36 Chief Complaint (Nursing): Headache Chief Complaint (Provider): i have a headache again History Per: Patient History/Exam Limitations: no limitations Onset/Duration Of Symptoms: Days (1), Gradual Severity: Severe Quality: Sharp Associated Symptoms: Photophobia, Nausea. denies: Vomiting, Extremity Weakness Additional History Per: Prior Records Additional Complaint(s): 48yo female c/o headache fronto-temporal associated with nausea, light sensitivity, consistent with prior migranes but not improved w tylenol and excedrin. Also takes oxycodone for chronic pain and cymbalta for depression, states compliance w both and has meds at home. Denies fever, rash, neck pain, weakness, change vision or speech. Past Medical History Reviewed: Historical Data, Nursing Documentation, Vital Signs Vital Signs: Last Vital Signs Temp 97.8 F 07/21/18 10:30 Pulse 74 07/21/18 10:30 Resp BP 136/93 H 07/21/18 10:30 Pulse Ox 98 07/21/18 10:30 - Medical History PMH: Anxiety, Asthma, Back Problems, Depression, Fractures (RT. ANKLE), Gastritis, Gastrointestinal Ulcer, Peripheral Edema (LEFT LEG), Seizures Denies: Chronic Kidney Disease - Surgical History Surgical History: Cholecystectomy, Endoscopy - Family History Family History: States: Unknown Family Hx - Living Arrangements Living Arrangements: With Family - Social History Alcohol: None - Home Medications Home Medications: Ambulatory Orders Medication Instructions Recorded RX: DULoxetine [Cymbalta] 30 mg PO DAILY 05/09/15 RX: Aspirin [Adult Low Dose 81 mg PO MWF 07/06/17 Aspirin EC] Acetaminophen [Tylenol Extra 1,000 mg PO Q6 PRN 03/22/18 Strength] Albuterol Sulfate [Proair Hfa] 2 puff IH Q4 PRN 03/22/18 Eslicarbazepine Acetate [Aptiom] 800 mg PO DAILY 03/22/18 Multivitamin [Multi-Vitamin Daily] 1 tab PO DAILY 03/22/18 Omeprazole 40 mg PO DAILY 03/22/18 Lidocaine [Lidocaine Pain Relief] 1 dose TOP Q12 04/25/18 RX: oxyCODONE [oxyCODONE Immediate 1 tab PO Q6H PRN 04/25/18 Release Tab] Naproxen [Naprosyn] 500 mg PO BID PRN #14 tablet 07/21/18 - Allergies Allergies/Adverse Reactions: Allergies Allergy/AdvReac Type Severity Reaction Status Date / Time iodine Allergy RASH Verified 04/10/18 13:34 shrimp Allergy RASH Verified 03/22/18 15:51 seafood Allergy RASH Uncoded 03/22/18 15:51 Review of Systems ROS Statement: Except As Marked, All Systems Reviewed And Found Negative Constitutional: Negative for: Fever, Chills, Weight loss Eyes: Positive for: Pain. Negative for: Vision Change, Eyelid Inflammation ENT: Negative for: Ear Pain Cardiovascular: Negative for: Chest Pain, Palpitations Respiratory: Negative for: Shortness of Breath Gastrointestinal: Positive for: Nausea. Negative for: Abdominal Pain Genitourinary Female: Negative for: Dysuria, Frequency Musculoskeletal: Negative for: Neck Pain Neurological: Positive for: Headache. Negative for: Weakness, Numbness, Incoordination, Change in Speech, Confusion, Seizures Psych: Negative for: Anxiety Physical Exam - Reviewed Nursing Documentation Reviewed: Yes Vital Signs Reviewed: Yes - Physical Exam Appears: Positive for: Non-toxic (speech clear) Head Exam: Positive for: ATRAUMATIC, NORMAL INSPECTION, NORMOCEPHALIC Skin: Positive for: Normal Color, Warm, DRY Eye Exam: Positive for: EOMI, Normal appearance, PERRL ENT: Positive for: Normal ENT Inspection Neck: Positive for: Normal, Painless ROM. Negative for: Pain On Movement Of Neck Cardiovascular/Chest: Positive for: Regular Rate, Rhythm Respiratory: Positive for: CNT, Normal Breath Sounds Gastrointestinal/Abdominal: Positive for: Normal Exam, Soft Back: Positive for: Normal Inspection Extremity: Positive for: Normal ROM. Negative for: Tenderness, Deformity, Swelling Neurologic/Psych: Positive for: Alert, Oriented. Negative for: Motor/Sensory Deficits - Laboratory Results Result Diagrams: 07/21/18 11:42 07/21/18 11:42 - ECG O2 Sat by Pulse Oximetry: 98 Medical Decision Making Medical Decision Making: medications for headache initiated headache persisted hence CT brain ordered and negative for acute process per radiologist [employer] database query (name Anastasia Rodriguez at same address listed on chart) reveals refills obtained around of month. she denies running out of pain medicines. Admits to using medical marijuana. Utox negative for opiates. Patient did request dilaudid in ED, I stated not appropriate headache medication and she did not ask further narcotics. improved over course of ED stay with eventual resolution of headache after imitrex. GILL tavares, has neurology and pain mgmt followup Disposition - Clinical Impression Clinical Impression: Headache - Patient ED Disposition Is Patient to be Admitted: No Counseled Patient/Family Regarding: Studies Performed, Diagnosis, Need For Followup, Rx Given - Disposition Disposition: Routine/Home Disposition Time: 15:00 Condition: IMPROVED Additional Instructions: Followup with PMD, neurology and your pain management physician as directed. Return to ER for any new or worsening symptoms. Prescriptions: Naproxen [Naprosyn] 500 mg PO BID PRN #14 tablet PRN Reason: Pain, Moderate (4-7) Instructions: Headache, Adult Forms: [facility] (Indonesian)
[2018-07-21 11:53] LABS: BASO % 1.1 % (0.0-2.0); EOS % 0.5 % (0.0-4.0); HEMOGLOBIN 13.1 g/dL (12.0-16.0); LYMPH # 0.7 K/uL (1.0-4.3); LYMPH % 18.3 % (20.0-40.0); MEAN CORPUSCULAR HEMOGLOBIN 29.5 pg (27.0-31.0); MEAN CORPUSCULAR HGB CONC 32.7 g/dL (33.0-37.0); MEAN PLATELET VOLUME 9.1 fl (7.2-11.7); MONO # 0.1 K/uL (0.0-0.8); NEUT # 3.1 K/uL (1.8-7.0); NEUT % 77.1 % (50.0-75.0); NRBC % 0.1 % (0.0-0.0); RBC 4.46 Mil/uL (3.80-5.20); RED CELL DISTRIBUTION WIDTH 13.1 % (11.5-14.5)
[2018-07-21 12:05] LABS: BLOOD UREA NITROGEN 8 mg/dl (7-17); GFR NON-AFRICAN AMERICAN > 60
[2018-07-21] MEDS ORDERED: Valproate 500 MG in Sodium Chloride 0.9% 100 ML IVPB ONE (12:42)
[2018-07-21] MEDS ORDERED: Valproate Sodium 500 mg Inj ONE (12:48)
[2018-07-21 12:55] LABS: SQUAMOUS EPITHIAL 2 /hpf (0-5); URINE BILIRUBIN NEGATIVE (NEGATIVE); URINE BLOOD NEGATIVE (NEGATIVE); URINE CLARITY CLEAR (Clear); URINE COLOR STRAW (YELLOW); URINE GLUCOSE (UA) NEG (Normal); URINE LEUKOCYTE ESTERASE NEG Leu/uL (Negative); URINE PROTEIN NEGATIVE (NEGATIVE); URINE UROBILINOGEN 0.2-1.0 mg/dL (0.2-1.0)
[2018-07-21 13:19] LABS: BARBITURATES, UR NEGATIVE (NEGATIVE); BENZODIAZEPINES, UR NEGATIVE (NEGATIVE); OPIATES, UR NEGATIVE (NEGATIVE); PHENCYCLIDINE, UR NEGATIVE (NEGATIVE)
--- NOTE | 2018-07-21 14:00 | CT ---
Date of service: 07/21/2018 PROCEDURE: CT HEAD WITHOUT CONTRAST. HISTORY: persistent headache COMPARISON: None available. TECHNIQUE: Axial computed tomography images were obtained through the head/brain without intravenous contrast. Radiation dose: Total exam DLP = 797.65 mGy-cm. This CT exam was performed using one or more of the following dose reduction techniques: Automated exposure control, adjustment of the mA and/or kV according to patient size, and/or use of iterative reconstruction technique. FINDINGS: HEMORRHAGE: No intracranial hemorrhage. BRAIN: No mass effect or edema. No atrophy or chronic microvascular ischemic changes. VENTRICLES: Unremarkable. No hydrocephalus. CALVARIUM: Unremarkable. PARANASAL SINUSES: Unremarkable as visualized. No significant inflammatory changes. MASTOID AIR CELLS: Unremarkable as visualized. No inflammatory changes. OTHER FINDINGS: None. IMPRESSION: Normal CT of the Head.
[2018-07-21 17:41] VITALS: BP 125/67; PULSE 71; RESP 18; TEMP 98
[2018-07-21 22:47] VITALS: O2SAT 98
== END 2018-07-21 17:10 | disposition home or self-care (01) ==
LOC: H.ER 10:25
DX: R51 Headache (principal)
CPT/HCPCS: 70450; 80048; 81003; 81025; 85025; 96365; 96367; 96372; 96375; 99284; G0480; J1100; J1885; J2765; J3030; J7030

== ENCOUNTER 2018-12-01 10:03 | Observation (INO) | payer MEDICARE, OTHER ==
[2018-12-01 10:09] VITALS: BMI 35.4
--- NOTE | 2018-12-01 10:51 | ED PDOC ---
HPI: Seizure Time Seen by Provider: 12/01/18 10:17 Chief Complaint (Nursing): Seizure History Per: Family Recent Seizure Activity Began: Hours Ago: (2) Number Of Seizures: One Length Of Seizures (Duration): Unknown Quality Of Seizure: Generalized Precipitating Factor(s): Missed Dose Of Anti-seizure Medication Associated Symptoms: Bit Tongue Post-ictal Period: Duration Unknown Severity: Moderate Additional Complaint(s): Brought by family after noting seizure this AM. Occurred approx 2 hours prior to arrival. Family heard pt fall in bathroom, when theycame saw generalized tonic clonic seizure lasting 4 min followed by post icatal period of confusion. While in ED, noted to have second seizure, generalized tonic clonic with foaming at mouth lasted approx 2 min before being aborted by Ativan 2 mg IV. Past Medical History Vital Signs: Last Vital Signs Temp 98.5 F 12/01/18 10:09 Pulse 78 12/01/18 10:20 Resp 32 H 12/01/18 10:20 BP 146/76 12/01/18 10:20 Pulse Ox 96 12/01/18 10:20 - Medical History PMH: Anxiety, Asthma, Back Problems, Depression, Fractures (RT. ANKLE), Gastritis, Gastrointestinal Ulcer, Malignancy (Leiomyosarcoma), Peripheral Edema (LEFT LEG), Seizures - Surgical History Surgical History: Cholecystectomy, Endoscopy - Family History Family History: States: Unknown Family Hx - Home Medications Home Medications: Ambulatory Orders Medication Instructions Recorded DULoxetine [Cymbalta] 30 mg PO DAILY 05/09/15 Aspirin [Adult Low Dose Aspirin EC] 81 mg PO MWF 07/06/17 Acetaminophen [Tylenol Extra 1,000 mg PO Q6 PRN 03/22/18 Strength] Albuterol Sulfate [Proair Hfa] 2 puff IH Q4 PRN 03/22/18 Eslicarbazepine Acetate [Aptiom] 800 mg PO DAILY 03/22/18 Multivitamin [Multi-Vitamin Daily] 1 tab PO DAILY 03/22/18 Omeprazole 40 mg PO DAILY 03/22/18 Lidocaine [Lidocaine Pain Relief] 1 dose TOP Q12 04/25/18 oxyCODONE [oxyCODONE Immediate 1 tab PO Q6H PRN 04/25/18 Release Tab] Naproxen [Naprosyn] 500 mg PO BID PRN #14 tablet 11/04/18 - Allergies Allergies/Adverse Reactions: Allergies Allergy/AdvReac Type Severity Reaction Status Date / Time iodine Allergy Intermediate RASH Verified 09/23/18 09:40 shrimp Allergy Intermediate RASH Verified 09/23/18 09:40 seafood Allergy Intermediate RASH Uncoded 09/23/18 09:40 Review of Systems ROS Statement: Except As Marked, All Systems Reviewed And Found Negative Neurological: Positive for: Seizures Physical Exam - Reviewed Nursing Documentation Reviewed: Yes Vital Signs Reviewed: Yes - Physical Exam Appears: Positive for: Non-toxic, No Acute Distress Head Exam: Positive for: ATRAUMATIC, NORMAL INSPECTION, NORMOCEPHALIC Skin: Positive for: Normal Color, Warm, DRY Eye Exam: Positive for: EOMI, Normal appearance, PERRL ENT: Negative for: Normal ENT Inspection (Bite kidd left side of tongue) Neck: Positive for: Normal, Painless ROM Cardiovascular/Chest: Positive for: Regular Rate, Rhythm Respiratory: Positive for: CNT, Normal Breath Sounds Gastrointestinal/Abdominal: Positive for: Normal Exam, Soft Back: Positive for: Normal Inspection Extremity: Positive for: Normal ROM Neurological/Psych: Positive for: Normal Tone. Negative for: Awake (sleepy but arousable), Motor/Sensory Deficits - Laboratory Results Result Diagrams: 12/01/18 10:55 - ECG O2 Sat by Pulse Oximetry: 96 Medical Decision Making Medical Decision Making: Second seizure within 3 hours, will place in obs after CT and blood work. Disposition - Clinical Impression Clinical Impression: Seizure disorder - Patient ED Disposition Is Patient to be Admitted: Yes - Disposition Disposition Time: 11:29 Condition: FAIR Forms: [facility] (Czech) - Pt Status Changed To: Hospital Disposition Of: Observation - POA Present On Arrival: None
[2018-12-01 11:03] LABS: BASO # 0.1 K/uL (0.0-0.2); BASO % 0.8 % (0.0-2.0); EOS # 0.1 K/uL (0.0-0.7); EOS % 2.4 % (0.0-4.0); HEMOGLOBIN 13.4 g/dL (12.0-16.0); LYMPH % 16.1 % (20.0-40.0); MEAN CELL VOLUME 88.4 fl (81.0-99.0); MEAN CORPUSCULAR HGB CONC 32.8 g/dL (33.0-37.0); MEAN PLATELET VOLUME 9.2 fl (7.2-11.7); MONO # 0.2 K/uL (0.0-0.8); MONO % 2.5 % (0.0-10.0); NEUT # 4.9 K/uL (1.8-7.0); NEUT % 78.2 % (50.0-75.0); NRBC % 0.1 % (0.0-0.0); RBC 4.62 Mil/uL (3.80-5.20); RED CELL DISTRIBUTION WIDTH 13.6 % (11.5-14.5); WHITE BLOOD COUNT 6.2 K/uL (4.8-10.8)
[2018-12-01] MEDS ORDERED: levETIRAcetam 1,000 MG in Sodium Chloride 0.9% 100 ML IVPB ONE (11:23)
[2018-12-01 11:31] LABS: ALB/GLOB RATIO 1.1 (1.0-2.1); ALBUMIN 4.4 g/dL (3.5-5.0); ALT/SGPT 30 U/L (9-52); AST/SGOT 24 U/L (14-36); BLOOD UREA NITROGEN 10 mg/dl (7-17); CALCIUM 9.5 mg/dL (8.4-10.2); GFR NON-AFRICAN AMERICAN > 60
--- NOTE | 2018-12-01 11:53 | CT ---
Date of service: 12/01/2018 PROCEDURE: CT HEAD WITHOUT CONTRAST. HISTORY: seizure COMPARISON: 07/21/2018 TECHNIQUE: Axial computed tomography images were obtained through the head/brain without intravenous contrast. Radiation dose: Total exam DLP = 2136.9 mGy-cm. This CT exam was performed using one or more of the following dose reduction techniques: Automated exposure control, adjustment of the mA and/or kV according to patient size, and/or use of iterative reconstruction technique. FINDINGS: HEMORRHAGE: No intracranial hemorrhage. BRAIN: No mass effect or edema. No atrophy or chronic microvascular ischemic changes. VENTRICLES: Unremarkable. No hydrocephalus. CALVARIUM: Unremarkable. PARANASAL SINUSES: Unremarkable as visualized. No significant inflammatory changes. MASTOID AIR CELLS: Unremarkable as visualized. No inflammatory changes. OTHER FINDINGS: None. IMPRESSION: Unremarkable CT scan of the brain without contrast. No interval change from prior study.
--- NOTE | 2018-12-01 13:11 | RAD ---
Date of service: 12/01/2018 HISTORY: cough COMPARISON: 03/22/2018 FINDINGS: LUNGS: Low lung volumes and mild bibasilar volume loss are noted as well some subtle increase in interstitial/vascular markings PLEURA: No significant pleural effusion identified, no pneumothorax apparent. CARDIOVASCULAR: No aortic atherosclerotic calcification present. Normal cardiac size. No pulmonary vascular congestion. OSSEOUS STRUCTURES: No significant abnormalities. VISUALIZED UPPER ABDOMEN: Normal. OTHER FINDINGS: None. IMPRESSION: No focal infiltrate. Minor amount of vascular congestion is not excluded.
--- NOTE | 2018-12-01 13:52 | CP.PCM.HP ---
<Mike Summers - Last Filed: 12/01/18 15:15> History of Present Illness - History of Present Illness History of Present Illness: Patient refused to speak with me, All information was taken by sister in law. Patient is a 48 yo female with Hx of seizure, mostly at night during sleep was brought today to ER Due to episode of seizure while she was in bathroom, her family report seizure lasted 4 min followed by post ictul period of confusion and fall and + trauma to head. Family report patient is on seizure medication and she is taking it daily. She report patient had a total of 2 episode today, one in the house and second one was a generalized tonic clonic zeizure with foaming at mouth in the ER which lasted approx 2 min and was aborted by Ativan 2mg IV. * PMH is limited due patient refusal to speak Sister in law report patient had a ``lymph node cancer`` which was treated with radiotherapy and chemotherapy. She also report patient use marijuana as pain medication. PCP: [facility] Allergies: Iodine, Shrimp Medicine: unable to attain PMH: unable to attain PSH: Unable to attain PFH: unknown ED course: Vitals WNL except for BP of 146/[address] head negative Chest xray negative Patient received 4 mg of Ativan in total and 1 loading dose of keppra in the ER Patient will be admitted under obs for further evaluation. 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 ANKLE) - GASTROINTESTINAL Hx Gastritis: Yes - PSYCHIATRIC Hx Psychophysiologic Disorder: Yes - SURGICAL HISTORY Hx Cholecystectomy: Yes - ANESTHESIA Hx Anesthesia: Yes Hx Anesthesia Reactions: No Hx Malignant Hyperthermia: No Meds Allergies/Adverse Reactions: Allergies Allergy/AdvReac Type Severity Reaction Status Date / Time iodine Allergy Intermediate RASH Verified 09/23/18 09:40 shrimp Allergy Intermediate RASH Verified 09/23/18 09:40 seafood Allergy Intermediate RASH Uncoded 09/23/18 09:40 Physical Exam - Constitutional Appears: Combative Additional comments: Patient refused to be physically examined, Patient became combative and wanted to be left alone Results - Vital Signs Recent Vital Signs: Last Vital Signs Temp 98.2 F 12/01/18 12:24 Pulse 98 H 12/01/18 12:24 Resp 19 12/01/18 12:24 BP 125/79 12/01/18 12:24 Pulse Ox 94 L 12/01/18 12:02 - Labs Result Diagrams: 12/01/18 10:55 12/01/18 10:55 Labs: Laboratory Results - last 24 hr 12/01/18 12/01/18 12/01/18 10:14 10:55 10:55 WBC 6.2 D RBC 4.62 Hgb 13.4 Hct 40.9 MCV 88.4 MCH 29.0 MCHC 32.8 L RDW 13.6 Plt Count 215 MPV 9.2 Neut % (Auto) 78.2 H Lymph % (Auto) 16.1 L [place] % (Auto) 2.5 Eos % (Auto) 2.4 Baso % (Auto) 0.8 Neut # (Auto) 4.9 Lymph # (Auto) 1.0 [place] # (Auto) 0.2 Eos # (Auto) 0.1 Baso # (Auto) 0.1 Sodium 142 Potassium 4.3 Chloride 104 Carbon Dioxide 25 Anion Gap 17 BUN 10 Creatinine 0.6 L Est GFR ( Amer) > 60 Est GFR (Non-Af Amer) > 60 POC Glucose (mg/dL) 120 H Random Glucose 124 H Calcium 9.5 Total Bilirubin 0.3 AST 24 ALT 30 Alkaline Phosphatase 189 H Troponin I Total Protein 8.3 H Albumin 4.4 Globulin 4.0 H Albumin/Globulin Ratio 1.1 12/01/18 12:15 WBC RBC Hgb Hct MCV MCH MCHC RDW Plt Count MPV Neut % (Auto) Lymph % (Auto) [place] % (Auto) Eos % (Auto) Baso % (Auto) Neut # (Auto) Lymph # (Auto) [place] # (Auto) Eos # (Auto) Baso # (Auto) Sodium Potassium Chloride Carbon Dioxide Anion Gap BUN Creatinine Est GFR ( Amer) Est GFR (Non-Af Amer) POC Glucose (mg/dL) Random Glucose Calcium Total Bilirubin AST ALT Alkaline Phosphatase Troponin I < 0.0120 Total Protein Albumin Globulin Albumin/Globulin Ratio Assessment & Plan - Assessment and Plan (Free Text) Assessment: 48 yo female with PMH of seizure present to ER due to Seizure and fall. Will be admitted for further evaluation and treatment Chest X-ray negative Ct head negative Vitals stable Seizure S/P Ativan 4mg ivp in ER S/P loading dose of keppra Start Keppra 750mg Q12h Ativan 1mg Q4h prn seizure Acetaminophen 650 Q6h prn pain Nasal [place] VL2 F/U CBC/CMP F/U Drug panel F/U Neuro recommendation. Diet NPO DVT SCD Hold Lovenox <Nicholas,Neil D - Last Filed: 12/01/18 16:30> Results - Vital Signs Recent Vital Signs: Last Vital Signs Temp 98.5 F 12/01/18 16:01 Pulse 92 H 12/01/18 16:01 Resp 18 12/01/18 16:01 BP 127/80 12/01/18 16:01 Pulse Ox 97 12/01/18 16:01 - Labs Result Diagrams: 12/01/18 10:55 12/01/18 10:55 Labs: Laboratory Results - last 24 hr 12/01/18 12/01/18 12/01/18 10:14 10:55 10:55 WBC 6.2 D RBC 4.62 Hgb 13.4 Hct 40.9 MCV 88.4 MCH 29.0 MCHC 32.8 L RDW 13.6 Plt Count 215 MPV 9.2 Neut % (Auto) 78.2 H Lymph % (Auto) 16.1 L [place] % (Auto) 2.5 Eos % (Auto) 2.4 Baso % (Auto) 0.8 Neut # (Auto) 4.9 Lymph # (Auto) 1.0 [place] # (Auto) 0.2 Eos # (Auto) 0.1 Baso # (Auto) 0.1 Sodium 142 Potassium 4.3 Chloride 104 Carbon Dioxide 25 Anion Gap 17 BUN 10 Creatinine 0.6 L Est GFR ( Amer) > 60 Est GFR (Non-Af Amer) > 60 POC Glucose (mg/dL) 120 H Random Glucose 124 H Calcium 9.5 Total Bilirubin 0.3 AST 24 ALT 30 Alkaline Phosphatase 189 H Troponin I Total Protein 8.3 H Albumin 4.4 Globulin 4.0 H Albumin/Globulin Ratio 1.1 12/01/18 12:15 WBC RBC Hgb Hct MCV MCH MCHC RDW Plt Count MPV Neut % (Auto) Lymph % (Auto) [place] % (Auto) Eos % (Auto) Baso % (Auto) Neut # (Auto) Lymph # (Auto) [place] # (Auto) Eos # (Auto) Baso # (Auto) Sodium Potassium Chloride Carbon Dioxide Anion Gap BUN Creatinine Est GFR ( Amer) Est GFR (Non-Af Amer) POC Glucose (mg/dL) Random Glucose Calcium Total Bilirubin AST ALT Alkaline Phosphatase Troponin I < 0.0120 Total Protein Albumin Globulin Albumin/Globulin Ratio Attending/Attestation - Attestation I have personally seen and examined this patient.: Yes I have fully participated in the care of the patient.: Yes I have reviewed all pertinent clinical information: Yes Notes (Text): 12/01/18 16:29 Patient seen and examined with resident. Case discussed and agreed with assessm ent and plan of management.
--- NOTE | 2018-12-01 18:47 | CP.PCM.CON ---
History of Present Illness - History of Present Illness History of Present Illness: Neurology Consultation Note: Consult requested by Dr. Nicholas Mrs. Rodriguez is a 48-year-old woman with a past medical history of seizure disorder, on Keppra 500 mg BID, who had a witnessed seizure at home yesterday, was brought to the ED and had another witnessed seizure. Was given Ativan 2 mg. Currently, she is complaining of ankle pain after a recent surgery. She is somnolent, but has no focal deficits. 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 ANKLE) - GASTROINTESTINAL Hx Gastritis: Yes - PSYCHIATRIC Hx Psychophysiologic Disorder: Yes Hx Substance Use: No - SURGICAL HISTORY Hx Cholecystectomy: Yes - ANESTHESIA Hx Anesthesia: Yes Hx Anesthesia Reactions: No Hx Malignant Hyperthermia: No Meds Allergies/Adverse Reactions: Allergies Allergy/AdvReac Type Severity Reaction Status Date / Time iodine Allergy Intermediate RASH Verified 09/23/18 09:40 shrimp Allergy Intermediate RASH Verified 09/23/18 09:40 seafood Allergy Intermediate RASH Uncoded 09/23/18 09:40 - Medications Medications: Current Medications Acetaminophen (Tylenol 325mg Tab) 650 mg PO Q6 PRN PRN Reason: Pain, Mild (1-3) Last Admin: 12/01/18 14:31 Dose: 650 mg Levetiracetam 750 mg/ Sodium (Chloride) 107.5 mls @ 215 mls/hr IVPB Q12H ASHLEY Lorazepam (Ativan) 1 mg IVP Q4 PRN PRN Reason: seizure and agitation Pantoprazole Sodium (Protonix Ec Tab) 40 mg PO DAILY ASHLEY Physical Exam - Constitutional Appears: Well - Head Exam Head Exam: ATRAUMATIC, NORMAL INSPECTION, NORMOCEPHALIC - Eye Exam Eye Exam: EOMI, Normal appearance, PERRL Pupil Exam: NORMAL ACCOMODATION, PERRL - ENT Exam ENT Exam: Mucous Membranes Moist, Normal Exam - Neck Exam Neck exam: Positive for: Normal Inspection - Respiratory Exam Respiratory Exam: Clear to Auscultation Bilateral, NORMAL BREATHING PATTERN - Cardiovascular Exam Cardiovascular Exam: REGULAR RHYTHM, +S1, +S2 - GI/Abdominal Exam GI & Abdominal Exam: Normal Bowel Sounds, Soft. absent: Tenderness - Extremities Exam Extremities exam: Positive for: normal inspection - Back Exam Back exam: NORMAL INSPECTION - Neurological Exam Neurological exam: Alert, CN II-XII Intact, Normal Gait, Oriented x3, Reflexes Normal - Psychiatric Exam Psychiatric exam: Normal Affect, Normal Mood - Skin Skin Exam: Dry, Intact, Normal Color, Warm Results - Vital Signs Recent Vital Signs: Last Vital Signs Temp 98.5 F 12/01/18 16:01 Pulse 92 H 12/01/18 16:01 Resp 18 12/01/18 16:01 BP 127/80 12/01/18 16:01 Pulse Ox 97 12/01/18 16:01 - Labs Result Diagrams: 12/01/18 10:55 12/01/18 10:55 Labs: Laboratory Results - last 24 hr 12/01/18 12/01/18 12/01/18 10:14 10:55 10:55 WBC 6.2 D RBC 4.62 Hgb 13.4 Hct 40.9 MCV 88.4 MCH 29.0 MCHC 32.8 L RDW 13.6 Plt Count 215 MPV 9.2 Neut % (Auto) 78.2 H Lymph % (Auto) 16.1 L [place] % (Auto) 2.5 Eos % (Auto) 2.4 Baso % (Auto) 0.8 Neut # (Auto) 4.9 Lymph # (Auto) 1.0 [place] # (Auto) 0.2 Eos # (Auto) 0.1 Baso # (Auto) 0.1 Sodium 142 Potassium 4.3 Chloride 104 Carbon Dioxide 25 Anion Gap 17 BUN 10 Creatinine 0.6 L Est GFR ( Amer) > 60 Est GFR (Non-Af Amer) > 60 POC Glucose (mg/dL) 120 H Random Glucose 124 H Calcium 9.5 Total Bilirubin 0.3 AST 24 ALT 30 Alkaline Phosphatase 189 H Troponin I Total Protein 8.3 H Albumin 4.4 Globulin 4.0 H Albumin/Globulin Ratio 1.1 12/01/18 12:15 WBC RBC Hgb Hct MCV MCH MCHC RDW Plt Count MPV Neut % (Auto) Lymph % (Auto) [place] % (Auto) Eos % (Auto) Baso % (Auto) Neut # (Auto) Lymph # (Auto) [place] # (Auto) Eos # (Auto) Baso # (Auto) Sodium Potassium Chloride Carbon Dioxide Anion Gap BUN Creatinine Est GFR ( Amer) Est GFR (Non-Af Amer) POC Glucose (mg/dL) Random Glucose Calcium Total Bilirubin AST ALT Alkaline Phosphatase Troponin I < 0.0120 Total Protein Albumin Globulin Albumin/Globulin Ratio Assessment & Plan (1) Seizure disorder Assessment and Plan: Will increased Keppra to 750 mg BID. Follow-up with neurology as an outpatient after she returns fully to baseline. Thank you for this consultation. Status: Acute
[2018-12-02 06:27] LABS: BASO % 0.5 % (0.0-2.0); EOS % 0.1 % (0.0-4.0); HEMOGLOBIN 12.9 g/dL (12.0-16.0); LYMPH # 1.4 K/uL (1.0-4.3); LYMPH % 22.9 % (20.0-40.0); MEAN CELL VOLUME 90.1 fl (81.0-99.0); MEAN CORPUSCULAR HEMOGLOBIN 29.5 pg (27.0-31.0); MEAN CORPUSCULAR HGB CONC 32.7 g/dL (33.0-37.0); MEAN PLATELET VOLUME 9.3 fl (7.2-11.7); MONO # 0.4 K/uL (0.0-0.8); MONO % 6.6 % (0.0-10.0); NEUT # 4.3 K/uL (1.8-7.0); NEUT % 69.9 % (50.0-75.0); NRBC % 0.1 % (0.0-0.0); RBC 4.36 Mil/uL (3.80-5.20); RED CELL DISTRIBUTION WIDTH 13.7 % (11.5-14.5); WHITE BLOOD COUNT 6.2 K/uL (4.8-10.8)
[2018-12-02 06:51] LABS: BLOOD UREA NITROGEN 13 mg/dl (7-17); CALCIUM 9.3 mg/dL (8.4-10.2); GFR NON-AFRICAN AMERICAN > 60
--- NOTE | 2018-12-02 08:05 | CARD ---
APPROVED REPORT Date of service: 12/01/2018 EKG Measurement Heart [id number] <Conclusion> Normal sinus rhythm Normal Electrocardiogram
[2018-12-02 08:53] VITALS: RESP 20
[2018-12-02] MEDS ORDERED: levETIRAcetam 500 MG in Sodium Chloride 0.9% 100 ML IVPB SCH (09:00)
[2018-12-02] MEDS ORDERED: Pantoprazole 40 mg EC Tab PO SCH (09:00)
--- NOTE | 2018-12-02 10:57 | CP.PCM.PN ---
Subjective - Date & Time of Evaluation Date of Evaluation: 12/02/18 Time of Evaluation: 10:54 - Subjective Subjective: Neuro Follow-Up Note: Mrs. Rodriguez was evaluated this morning at bedside. She offers no new complaints today. States that she forgot to take her Keppra evening dose on Sunday. However she also admits to having more frequent seizures during the night when she's sleeping. Pt admits to waiting up confused more frequently over the last 2 Months. She last saw her neurologist, Dr. Rai about 1 month ago; no changes were made to her regimen at that time. Currently she denies h/a, dizziness, visual changes, chest pain, palpitation, sob, abd pain, paresthesias. Objective - Vital Signs/Intake and Output Vital Signs (last 24 hours): Temp Pulse Resp BP Pulse Ox 98.5 F 84 20 136/80 92 L 12/02/18 08:52 12/02/18 08:52 12/02/18 08:52 12/02/18 08:52 12/02/18 05:00 - Medications Medications: Current Medications Acetaminophen (Tylenol 325mg Tab) 650 mg PO Q6 PRN PRN Reason: Pain, Mild (1-3) Last Admin: 12/02/18 04:54 Dose: 650 mg Levetiracetam 750 mg/ Sodium (Chloride) 107.5 mls @ 215 mls/hr IVPB Q12H [facility] Last Admin: 12/01/18 22:00 Dose: 215 mls/hr Lorazepam (Ativan) 1 mg IVP Q4 PRN PRN Reason: seizure and agitation Pantoprazole Sodium (Protonix Ec Tab) 40 mg PO DAILY [facility] Last Admin: 12/02/18 08:46 Dose: 40 mg - Labs Labs: 12/02/18 05:10 12/02/18 05:10 - Constitutional Appears: Well, Non-toxic, No Acute Distress - Head Exam Head Exam: ATRAUMATIC, NORMAL INSPECTION, NORMOCEPHALIC - Eye Exam Eye Exam: EOMI, Normal appearance, PERRL Pupil Exam: NORMAL ACCOMODATION, PERRL - ENT Exam ENT Exam: Mucous Membranes Moist - Neck Exam Neck Exam: Full ROM, Normal Inspection - Respiratory Exam Respiratory Exam: NORMAL BREATHING PATTERN - Extremities Exam Extremities Exam: Full ROM, Normal Inspection - Back Exam Back Exam: Full ROM - Neurological Exam Neurological Exam: Alert, Awake, CN II-XII Intact, Oriented x3, Reflexes Normal Neuro motor strength exam: Left Upper Extremity: 5, Right Upper Extremity: 5, Left Lower Extremity: 5, Right Lower Extremity: 5 Additional comments: No focal motor or sensory deficits. No tremors or abnormal movements noted. - Psychiatric Exam Psychiatric exam: Normal Affect, Normal Mood - Skin Skin Exam: Normal Color Assessment and Plan (1) Seizure disorder Assessment & Plan: Imaging reviewed: -CT head (12/01/18): Unremarkable CT scan of the brain without contrast. No interval change from prior study. -Continue Keppra 750 mg Q12 hours while in the hospital and upon d/c (please provide rx to pt). -Pt to follow up with her neurologist as outpatient, Dr. Rai/ -Notify neuro of any acute changes in pt's condition. No further recommendations. Reconsult prn. Thank you for this consultation. Reyna Borden, HUMA, PROPOSAL DEVELOPMENT MANAGER Discussed with Dr. Wilder Status: Acute
[2018-12-02 12:43] VITALS: BP 124/78; PULSE 80; TEMP 98.7; O2SAT 94
--- NOTE | 2018-12-02 14:38 | CP.PCM.DIS ---
<Mike Summers - Last Filed: 12/02/18 14:56> Provider - Provider Date of Admission: 12/01/18 11:28 Attending physician: Neil Nicholas MD Consults: 12/01/18 12:07 Neurology Consult Stat Comment: Consulting Provider: Calvin Reynoso Consulting Physician: Calvin Reynoso Reason for Consult: recurrent seizure 12/01/18 17:06 Nursing Referral for Wound Care Routine Comment: Physician Instructions: Reason For Exam: abrasion on left ankle Pastoral Care Referral Routine Comment: Physician Instructions: Reason For Exam: spiritual services Time Spent in preparation of Discharge (in minutes): 25 Diagnosis - Discharge Diagnosis (1) Seizure disorder Status: Chronic Hospital Course - Lab Results Lab Results: Most Recent Lab Values WBC 6.2 K/uL (4.8-10.8) 12/02/18 05:10 RBC 4.36 Mil/uL (3.80-5.20) 12/02/18 05:10 Hgb 12.9 g/dL (12.0-16.0) 12/02/18 05:10 Hct 39.3 % (34.0-47.0) 12/02/18 05:10 MCV 90.1 fl (81.0-99.0) 12/02/18 05:10 MCH 29.5 pg (27.0-31.0) 12/02/18 05:10 MCHC 32.7 g/dL (33.0-37.0) L 12/02/18 05:10 RDW 13.7 % (11.5-14.5) 12/02/18 05:10 Plt Count 214 K/uL (130-400) 12/02/18 05:10 MPV 9.3 fl (7.2-11.7) 12/02/18 05:10 Neut % (Auto) 69.9 % (50.0-75.0) 12/02/18 05:10 Lymph % (Auto) 22.9 % (20.0-40.0) 12/02/18 05:10 [place] % (Auto) 6.6 % (0.0-10.0) 12/02/18 05:10 Eos % (Auto) 0.1 % (0.0-4.0) 12/02/18 05:10 Baso % (Auto) 0.5 % (0.0-2.0) 12/02/18 05:10 Neut # (Auto) 4.3 K/uL (1.8-7.0) 12/02/18 05:10 Lymph # (Auto) 1.4 K/uL (1.0-4.3) 12/02/18 05:10 [place] # (Auto) 0.4 K/uL (0.0-0.8) 12/02/18 05:10 Eos # (Auto) 0.0 K/uL (0.0-0.7) 12/02/18 05:10 Baso # (Auto) 0.0 K/uL (0.0-0.2) 12/02/18 05:10 Sodium 142 mmol/l (132-148) 12/02/18 05:10 Potassium 3.7 MMOL/L (3.6-5.0) 12/02/18 05:10 Chloride 104 mmol/L (98-107) 12/02/18 05:10 Carbon Dioxide 23 mmol/L (22-30) 12/02/18 05:10 Anion Gap 19 (10-20) 12/02/18 05:10 BUN 13 mg/dl (7-17) 12/02/18 05:10 Creatinine 0.7 mg/dl (0.7-1.2) 12/02/18 05:10 Est GFR ( Amer) > 60 12/02/18 05:10 Est GFR (Non-Af Amer) > 60 12/02/18 05:10 POC Glucose (mg/dL) 120 mg/dL (65-110) H 12/01/18 10:14 Random Glucose 87 mg/dL (65-105) 12/02/18 05:10 Calcium 9.3 mg/dL (8.4-10.2) 12/02/18 05:10 Total Bilirubin 0.3 mg/dl (0.2-1.3) 12/01/18 10:55 AST 24 U/L (14-36) 12/01/18 10:55 ALT 30 U/L (9-52) 12/01/18 10:55 Alkaline Phosphatase 189 U/L (38-126) H 12/01/18 10:55 Troponin I < 0.0120 ng/mL (0.00-0.120) 12/01/18 12:15 Total Protein 8.3 G/DL (6.3-8.2) H 12/01/18 10:55 Albumin 4.4 g/dL (3.5-5.0) 12/01/18 10:55 Globulin 4.0 gm/dL (2.2-3.9) H 12/01/18 10:55 Albumin/Globulin Ratio 1.1 (1.0-2.1) 12/01/18 10:55 - Hospital Course Hospital Course: 48 yo female with PMH of Seizure, Depression brought to ER Due to episode of Seizure, In ED patient had 2 >2min generalized tonic clonic seizure. Patient was admitted to telemetry for further evaluation and treatment. During her stay patient received a total of 4mg IV Ativan, a loading dose of Keppra followed by Keppra 750 BID. -In the ED patient vitals were WNL except for BP of 146/76 RR of 32 -CT head negative -Chest xray negative During her stay neurology was consulted, recommended to increase Keppra 750mg BID. Since admission patient symptoms improved, she did not had any seizure, and report remembering not taking her sunday dose and thats what most likely made her had a seizure. Patient seen and examined at bedside. no acute event overnight. Patient was very pleasant and cooperative. She denies any shacking, LOC, or any seizure symptoms. Patient denies any chest pain, sob, abd pain, diarrhea, constipation or dysuria. Patient Is comfortable to be discharged home Medical team discussed and reviewed patient chart. Patient is stable and clear to be discharged home with follow-up with neurology as an outpatient. Patient should follow up with PCP in 1 week Medication to be sent home Keppra 750mg ER precaution given, if symptoms exacerbate or unresolved, visit nearest ER. Discussed diagnosis and treatment with patient, patient understood, and agreed with plan. Patient discharged home. Discharge Exam - Head Exam Head Exam: ATRAUMATIC, NORMAL INSPECTION, NORMOCEPHALIC - Eye Exam Eye Exam: EOMI, Normal appearance, PERRL Pupil Exam: NORMAL ACCOMODATION, PERRL - Respiratory Exam Respiratory Exam: Clear to PA & Lateral, NORMAL BREATHING PATTERN, UNREMARKABLE - Cardiovascular Exam Cardiovascular Exam: REGULAR RHYTHM, +S1, +S2 - GI/Abdominal Exam GI & Abdominal Exam: Normal Bowel Sounds, Unremarkable - Extremities Exam Extremities exam: full ROM - Back Exam Back exam: NORMAL INSPECTION, paraspinal tenderness - Neurological Exam Neurological exam: Alert, CN II-XII Intact, Normal Gait, Oriented x3, Reflexes Normal - Psychiatric Exam Psychiatric exam: Normal Affect, Normal Mood Discharge Plan - Discharge Medications Prescriptions: Levetiracetam [Keppra] 750 mg PO BID #60 tablet - Follow Up Plan Condition: FAIR Disposition: HOME/ ROUTINE Instructions: Seizures, Adult (DC) Additional Instructions: follow up with primary doctor in 1 week Referrals: Calvin Reynoso MD [Medical Doctor] - <Neil Nicholas - Last Filed: 12/02/18 15:10> Provider - Provider Date of Admission: 12/01/18 11:28 Attending physician: Neil Nicholas MD Consults: 12/01/18 12:07 Neurology Consult Stat Comment: Consulting Provider: Calvin Reynoso Consulting Physician: Calvin Reynoso Reason for Consult: recurrent seizure 12/01/18 17:06 Nursing Referral for Wound Care Routine Comment: Physician Instructions: Reason For Exam: abrasion on left ankle Pastoral Care Referral Routine Comment: Physician Instructions: Reason For Exam: spiritual services Hospital Course - Lab Results Lab Results: Most Recent Lab Values WBC 6.2 K/uL (4.8-10.8) 12/02/18 05:10 RBC 4.36 Mil/uL (3.80-5.20) 12/02/18 05:10 Hgb 12.9 g/dL (12.0-16.0) 12/02/18 05:10 Hct 39.3 % (34.0-47.0) 12/02/18 05:10 MCV 90.1 fl (81.0-99.0) 12/02/18 05:10 MCH 29.5 pg (27.0-31.0) 12/02/18 05:10 MCHC 32.7 g/dL (33.0-37.0) L 12/02/18 05:10 RDW 13.7 % (11.5-14.5) 12/02/18 05:10 Plt Count 214 K/uL (130-400) 12/02/18 05:10 MPV 9.3 fl (7.2-11.7) 12/02/18 05:10 Neut % (Auto) 69.9 % (50.0-75.0) 12/02/18 05:10 Lymph % (Auto) 22.9 % (20.0-40.0) 12/02/18 05:10 [place] % (Auto) 6.6 % (0.0-10.0) 12/02/18 05:10 Eos % (Auto) 0.1 % (0.0-4.0) 12/02/18 05:10 Baso % (Auto) 0.5 % (0.0-2.0) 12/02/18 05:10 Neut # (Auto) 4.3 K/uL (1.8-7.0) 12/02/18 05:10 Lymph # (Auto) 1.4 K/uL (1.0-4.3) 12/02/18 05:10 [place] # (Auto) 0.4 K/uL (0.0-0.8) 12/02/18 05:10 Eos # (Auto) 0.0 K/uL (0.0-0.7) 12/02/18 05:10 Baso # (Auto) 0.0 K/uL (0.0-0.2) 12/02/18 05:10 Sodium 142 mmol/l (132-148) 12/02/18 05:10 Potassium 3.7 MMOL/L (3.6-5.0) 12/02/18 05:10 Chloride 104 mmol/L (98-107) 12/02/18 05:10 Carbon Dioxide 23 mmol/L (22-30) 12/02/18 05:10 Anion Gap 19 (10-20) 12/02/18 05:10 BUN 13 mg/dl (7-17) 12/02/18 05:10 Creatinine 0.7 mg/dl (0.7-1.2) 12/02/18 05:10 Est GFR ( Amer) > 60 12/02/18 05:10 Est GFR (Non-Af Amer) > 60 12/02/18 05:10 POC Glucose (mg/dL) 120 mg/dL (65-110) H 12/01/18 10:14 Random Glucose 87 mg/dL (65-105) 12/02/18 05:10 Calcium 9.3 mg/dL (8.4-10.2) 12/02/18 05:10 Total Bilirubin 0.3 mg/dl (0.2-1.3) 12/01/18 10:55 AST 24 U/L (14-36) 12/01/18 10:55 ALT 30 U/L (9-52) 12/01/18 10:55 Alkaline Phosphatase 189 U/L (38-126) H 12/01/18 10:55 Troponin I < 0.0120 ng/mL (0.00-0.120) 12/01/18 12:15 Total Protein 8.3 G/DL (6.3-8.2) H 12/01/18 10:55 Albumin 4.4 g/dL (3.5-5.0) 12/01/18 10:55 Globulin 4.0 gm/dL (2.2-3.9) H 12/01/18 10:55 Albumin/Globulin Ratio 1.1 (1.0-2.1) 12/01/18 10:55 Attending/Attestation - Attestation I have personally seen and examined this patient.: Yes I have fully participated in the care of the patient.: Yes I have reviewed all pertinent clinical information, including history, physical exam and plan: Yes Notes (Text): 12/02/18 15:08 Patient seen and examined with resident. Case discussed and agreed with assessment. Patient is a known case of seizure disorder who admitted not able to take her seizure medications. No seizure activity noted in the last 24hrs
== END 2018-12-02 14:40 | disposition home or self-care (01) ==
LOC: H.ER 10:03 → H.ERHOLD 11:28 → H.TEL 12:54
DX: G40.409 Other generalized epilepsy and epileptic syndromes, not intractable, without status epilepticus (principal); J45.909 Unspecified asthma, uncomplicated; Z79.82 Long term (current) use of aspirin; Z87.11 Personal history of peptic ulcer disease; Z87.891 Personal history of nicotine dependence; Z90.49 Acquired absence of other specified parts of digestive tract; Z92.3 Personal history of irradiation; Z85.831 Personal history of malignant neoplasm of soft tissue; F32.9 Major depressive disorder, single episode, unspecified; F41.9 Anxiety disorder, unspecified; K29.70 Gastritis, unspecified, without bleeding; Z87.81 Personal history of (healed) traumatic fracture; Z79.899 Other long term (current) drug therapy; M25.579 Pain in unspecified ankle and joints of unspecified foot; F12.90 Cannabis use, unspecified, uncomplicated
CPT/HCPCS: 36415; 70450; 71045; 80048; 80053; 82948; 84484; 85025; 93005; 96365; 96374; 99285; G0378; J1885; J1953; J2060

== ENCOUNTER 2019-01-19 10:29 | Emergency (ER) | payer MEDICARE, OTHER ==
[2019-01-19 10:33] VITALS: O2SAT 97; BMI 35.0
[2019-01-19] MEDS ORDERED: Morphine 4 MG/ML VIAL IM STA (10:57)
[2019-01-19] MEDS ORDERED: Morphine 4 MG/ML VIAL ONE (11:05)
--- NOTE | 2019-01-19 14:04 | ED PDOC ---
HPI: Back Time Seen by Provider: 01/19/19 10:35 Chief Complaint (Nursing): Back Pain Chief Complaint (Provider): Right lower back pain for 2 weeks History Per: Patient History/Exam Limitations: no limitations Onset/Duration Of Symptoms: Days Current Symptoms Are (Timing): Still Present Additional Complaint(s): 48 yo female with history of seizure disorder and chronic pain presents for evaluation of right sided back pain. Pt states she has been seeing pain management for thigh trey and saw her doctor 01/17/19. Pt states that she called him and her oncologist (in remission) and was told to come to ER for an "injection". Pt states it has been going on for 2 weeks and is different from her usually pain. PT states that she does not know why her back is hurting. No urinary symptoms. No fever/chills. No radiation of pain. Eating and drinking well. Denies urinary symptoms. Past Medical History Reviewed: Historical Data, Nursing Documentation, Vital Signs Vital Signs: Last Vital Signs Temp 97.9 F 01/19/19 10:30 Pulse 65 01/19/19 10:30 Resp 18 01/19/19 10:30 BP 147/83 01/19/19 10:30 Pulse Ox 97 01/19/19 10:30 Primary Care Provider: Non H Provider, - Medical History PMH: Anxiety, Asthma, Back Problems, Depression, Fractures (RT. ANKLE), Gastritis, Gastrointestinal Ulcer, Malignancy (Leiomyosarcoma), Peripheral Edema (LEFT LEG), Seizures Denies: HIV - Surgical History Surgical History: Cholecystectomy, Endoscopy - Family History Family History: States: Unknown Family Hx - Home Medications Home Medications: Ambulatory Orders Medication Instructions Recorded DULoxetine [Cymbalta] 30 mg PO DAILY 05/09/15 Aspirin [Adult Low Dose Aspirin EC] 81 mg PO MWF 07/06/17 Acetaminophen [Tylenol Extra 1,000 mg PO Q6 PRN 03/22/18 Strength] Albuterol Sulfate [Proair Hfa] 2 puff IH Q4 PRN 03/22/18 Multivitamin [Multi-Vitamin Daily] 1 tab PO DAILY 03/22/18 Omeprazole 40 mg PO DAILY 03/22/18 Acetaminophen [Tylenol 325mg tab] 650 mg PO Q6 PRN tab 12/02/18 Levetiracetam [Keppra] 750 mg PO BID #60 tablet 12/02/18 levETIRAcetam [Keppra] 750 mg PO BID tab 12/02/18 - Allergies Allergies/Adverse Reactions: Allergies Allergy/AdvReac Type Severity Reaction Status Date / Time iodine Allergy Intermediate RASH Verified 09/23/18 09:40 shrimp Allergy Intermediate RASH Verified 09/23/18 09:40 seafood Allergy Intermediate RASH Uncoded 09/23/18 09:40 Review of Systems ROS Statement: Except As Marked, All Systems Reviewed And Found Negative Constitutional: Negative for: Fever, Chills Cardiovascular: Negative for: Chest Pain, Palpitations Respiratory: Negative for: Cough, Shortness of Breath Gastrointestinal: Negative for: Nausea, Vomiting, Abdominal Pain Genitourinary Female: Negative for: Hematuria, Vaginal Bleeding, Pelvic Pain Musculoskeletal: Positive for: Back Pain Physical Exam - Reviewed Nursing Documentation Reviewed: Yes Vital Signs Reviewed: Yes - Physical Exam Appears: Positive for: Well, Non-toxic, No Acute Distress Head Exam: Positive for: ATRAUMATIC, NORMAL INSPECTION, NORMOCEPHALIC Skin: Positive for: Normal Color, Warm, DRY Eye Exam: Positive for: Normal appearance ENT: Positive for: Normal ENT Inspection Neck: Positive for: Normal, Painless ROM Cardiovascular/Chest: Positive for: Regular Rate, Rhythm Respiratory: Positive for: CNT, Normal Breath Sounds Gastrointestinal/Abdominal: Positive for: Normal Exam, Soft. Negative for: Tenderness Back: Positive for: Normal Inspection, Other (Right lower back where pain is located, non-tender ). Negative for: L CVA Tenderness, R CVA Tenderness, Vertebral Tenderness, Decreased ROM Extremity: Positive for: Normal ROM Neurological/Psych: Positive for: Awake, Alert, Normal Tone - ECG O2 Sat by Pulse Oximetry: 97 Pulse Ox Interpretation: Normal Medical Decision Making Medical Decision Makin - Pain 12/25 Disposition - Clinical Impression Clinical Impression: Back pain - Patient ED Disposition Is Patient to be Admitted: No - Disposition Disposition: Routine/Home Disposition Time: 13:49 Condition: GOOD Instructions: Low Back Pain in Adults
[2019-01-19 14:52] VITALS: BP 130/76; PULSE 70; RESP 65; TEMP 98
== END 2019-01-19 13:50 | disposition home or self-care (01) ==
LOC: H.ER 10:29
DX: M54.9 Dorsalgia, unspecified (principal); G89.29 Other chronic pain
CPT/HCPCS: 96372; 99283; J2270; J2930